=== PATIENT | male | born 1950 | race Caucasian/White ===

== ENCOUNTER → 2019-10-29 10:59 | Outpatient (REF) | payer MEDICARE, SELFPAY | LOC: ANHLAB 10:59 | PROVIDERS: PCP Internal Medicine; Visit Provider Nurse Practitioner | DX: L57.0 Actinic keratosis (principal) | CPT/HCPCS: 88305 ==

== ENCOUNTER 2020-11-30 07:30 | Outpatient (RCR) | payer MEDICARE, SELFPAY ==
--- NOTE | 2020-11-03 14:06 | PTOPEVAL ---
Thank you for referring Annel Jenkins to [facility].? The patient is scheduled to be seen for therapy? 2 x/week for 4-6 weeks. Please review, sign, date and return this plan of care ALBINO. I agree with and certify that the following plan of care is medically necessary. Referring Physician Date Attending Provider: Giuseppe Casey MD Referring Provider: Giuseppe Casey MD Evaluation Information Problem Diagnosis kassandra knee OA Onset chronic Additional Evaluation Detail last bout of therapy 3 yrs ago to address knee pain. Subjective Information He recently received Query Text:As Reported By Patient/ injections in kassandra. knee with Family improve knee pain. He was recommended to have TKA 3 yrs ago, but his pain and symptoms improved with therapy. He requested returning to therapy to address knee pain. He does not wear a brace for his knees. He c/o weakness of his legs and sluggish of his legs . He has pain with twisting motion with golf. [employer]: knee ext machine single leg at 40#, hamstring curls at 40#, calf presses at 40#, leg press at 40#. He does not usually perform cardio, will do 10' on bike. Does not perform a walking program. He goes to the gym 1-3x/wk. He can walk up/down the steps at home without problems, but he uses the railing. He will preform steps for cardio x 6 reps Pain Assessment Pain Scale Used Numeric (1 - 10) Self Report Pain Assessment Left Knee(s) Reported Pain Level 0 Pain Description Aching Pain Frequency Chronic Lowest Pain Intensity 0 Greatest Pain Intensity 2 Pain Aggravating Factors Exercise/Activity,Stair Climbing,Walking,Weight Bearing/Standing Pain Behaviors None Right Knee(s) Reported Pain Level 0 Pain Frequency Chronic Lowest Pain Intensity 0 Greatest Pain Intensity 2 Pain Aggravating Factors Exercise/Activity,Stair
--- NOTE | 2020-11-30 10:33 | PTOPEVAL ---
Thank you for referring Annel Jenkins to [facility].? Patient has attended 7 therapy visits from 11/03/20 to 11/30/20. He demonstrates improved pain, improve muscle strength, improved leg control with functional mobility. He demonstrates independent with his home program and fitness routine program. He has achieved his therapy goals at this time. Will plan to discharge skilled therapy services at this time. Please review and sign therapy discharge summary and return ALBINO. I agree with and certify that the following plan of care is medically necessary. Referring Physician Date Attending Provider: Giuseppe Casey MD Referring Provider: Giuseppe Casey MD Physical Therapy Discharge Note Diagnosis kassandra knee OA Onset chronic Subjective Information He does problem with knees for Query Text:As Reported By Patient/ daily activities. States his Family knees feel good as long as he stays with his fitness routine. He does the machines at the gym. He is not consistent with the stretches at home. He knows he has to stick with his fitness routine. Denies any problem with playing golf. He does fatigue towards the end of the game. Pain Assessment Pain Scale Used Numeric (1 - 10) Self Report Pain Assessment Left Knee(s) Reported Pain Level 0 Greatest Pain Intensity 2 Right Knee(s) Reported Pain Level 0 Greatest Pain Intensity 2 Lower Extremity Muscle Strength Testing Hip Strength Bilateral Hip Flexion Strength 5 Normal Hip Extension Strength 5 Normal Hip Abduction Strength 4- Good - Knee Strength Bilateral Knee Flexion Strength 5 Normal Knee Extension Strength 5 Normal Muscle Length Testing Muscle Length Testing Two-Joint Hip Flexor Shortened Muscles Short (R) Iliopsoas,Short (L) Iliopsoas,Short (R) Rectus Femoris,Short (L) Rectus Femoris,Short (R) Ilial Tib Band,Short (L) Ilial Tib Band Piriformis w/Hip Flexion >90 Degrees (R) Moderate Tightness,(L) Moderate Tightness Right Prone Hip Internal Rotator Length 35 (degrees) Left Prone Hip Internal Rotator Length ( 40 degrees) Right Straight Leg Raise Muscle Length ( 90 degrees) Left Straight Leg Raise Muscle Length ( 90 degrees) Left Hamstring Length -25 Query Text:(90 - 90 Position) Right Hamstring Length -25 Query Text:(90 - 90 Position) Special Tests-Lower Extremity Hip Special Tests Blue
== END 2020-11-30 14:49 | disposition home or self-care (01) ==
LOC: ANHPT 07:30
PROVIDERS: PCP Internal Medicine; Referring Provider Orthopaedic Surgery; Visit Provider Orthopaedic Surgery
DX: M17.0 Bilateral primary osteoarthritis of knee (principal)
CPT/HCPCS: 97110; 97140; 97162

== ENCOUNTER → 2021-05-04 08:16 | Outpatient (REF) | payer MEDICARE, SELFPAY | LOC: ANHLAB 08:16 | PROVIDERS: PCP Internal Medicine; Visit Provider Nurse Practitioner | DX: L98.9 Disorder of the skin and subcutaneous tissue, unspecified (principal) | CPT/HCPCS: 88305 ==

== ENCOUNTER → 2021-07-05 08:06 | Outpatient (REF) | payer MEDICARE, SELFPAY | LOC: ANHLAB 08:06 | PROVIDERS: PCP Internal Medicine; Visit Provider Nurse Practitioner | DX: C44.42 Squamous cell carcinoma of skin of scalp and neck (principal) | CPT/HCPCS: 88305; 88331 ==

== ENCOUNTER 2021-08-23 23:46 | Observation (INO) | payer MEDICARE, SELFPAY ==
--- NOTE | ~2021-08-23 | XR_ITS ---
EXAMINATION: XR chest 1V portable EXAM DATE: 08/24/2021 00:40 INDICATION: Cough, shaking chills, heavy breathing. TECHNIQUE: Portable AP frontal chest x-ray was obtained. There is no prior study for comparison. FINDINGS: The lungs are clear. There are no pleural effusions. Cardiac silhouette is prominent but magnified on this AP technique. There is no pneumothorax suspected. The bones and soft tissues are unremarkable. IMPRESSION: No acute cardiopulmonary findings. Reviewed, dictated and finalized at location A. UCT MARKETING COORDINATOR
[2021-08-23 23:51] VITALS: BP 147/92; PULSE 87; RESP 20; TEMP 36.7; O2SAT 97
[2021-08-24] VITALS (15 sets, daily range): BP systolic 91–140; BP diastolic 45–90; PULSE 69–98; RESP 16–20; TEMP 36.3–37.4; O2SAT 22–99; BMI 35.0
--- NOTE | 2021-08-24 | ECHO_ITS ---
Patient Info Name: Annel Jenkins Age: 70 years : 1950 Gender: Male Ht: 65 in Wt: 210 lbs BSA: 2.13 m2 HR: 75 bpm BP: 115 / 74 mmHg Heart Rhythm: Sinus Rhythm Exam Date: 08/24/2021 2:45 PM Exam Location: [facility] Patient Status: Outpatient Admit Date: 08/24/2021 Staff Ordering Physician: Yonny Jones MD Sheet Metal Lay Out Worker: Cristofer Nowak, ANTONIETA, RT Attending Provider: Joseph Leal MD Referring Physician: Robert ADORNO; Exam Type: CA echo doppler color flow Study Info Indications I45.89 - Other specified conduction disorders Complete two-dimensional, color flow and Doppler transthoracic echocardiogram is performed. Strain analysis performed. Summary 1. Complete two-dimensional, color flow and Doppler transthoracic echocardiogram is performed. 2. Strain analysis performed. 3. Left ventricular chamber dimension is normal. 4. Left ventricular systolic function is normal, estimated at 60-65%. 5. There is mildly increased left ventricular wall thickness. 6. The left ventricular diastolic function is normal. 7. Global longitudinal strain is abnormal at -15 %. 8. Right ventricular chamber dimension is mildly enlarged. 9. There is mild mitral valve regurgitation. 10. Mild pulmonary hypertension, estimated pulmonary arterial systolic pressure is 36 mmHg. 11. There is mild tricuspid valve regurgitation. 12. There is mild pulmonic regurgitation. 13. The aortic root size at the sinus of Valsalva is mildly dilated. Left Ventricle Left ventricular chamber dimension is normal. Left ventricular systolic function is normal, estimated at 60-65%. There is mildly increased left ventricular wall thickness. The left ventricular diastolic function is normal. Global longitudinal strain is abnormal at -15 %. Right Ventricle Right ventricular chamber dimension is mildly enlarged. Right ventricular systolic function is normal. Left Atria Left atrial chamber dimension is mildly enlarged. Right Atria Right atrial chamber dimension is normal. Atrial Septum Intact interatrial septum visualized by color flow imaging. Aortic Valve The aortic valve is trileaflet. There is mild aortic valve sclerosis. There is no aortic valve stenosis. There is trace aortic valve regurgitation. Pulmonic Valve The pulmonic valve is normal. There is no pulmonic valve stenosis. There is mild pulmonic regurgitation. Mitral Valve The mitral valve has normal leaflets. There is no mitral valve stenosis. There is mild mitral valve regurgitation. Tricuspid Valve Mild pulmonary hypertension, estimated pulmonary arterial systolic pressure is 36 mmHg. The tricuspid valve leaflets are normal. There is no significant tricuspid valve stenosis. There is mild tricuspid valve regurgitation. Pericardium/Pleural The pericardium appears normal. There is no pericardial effusion. Inferior Vena Cava Normal inferior vena cava with >50% collapse upon inspiration consistent with normal right atrial pressure, 5 mmHg. Aorta The aortic root size at the sinus of Valsalva is mildly dilated. Left Ventricular Outflow Tract Name Value Normal LVOT 2D LVOT Diameter 2.0 cm LVO
--- NOTE | 2021-08-24 00:01 | ECG_ITS ---
Measurements Intervals [place] Rate: 93 P: [place]: 0 QRS: 12 QRSD: 97 T: 5 QT: 358 QTc: 447 Interpretive Statements ACCELERATED JUNCTIONAL RHYTHM FREQUENT VENTRICULAR PREMATURE COMPLEXES INCOMPLETE RIGHT BUNDLE BRANCH BLOCK DELAYED PRECORDIAL R/S TRANSITION BORDERLINE T WAVE ABNORMALITY- INFERIOR LEADS BASELINE ARTIFACT- I, II, AVR, AVL, AVF, V4-V6 ABNORMAL ECG Electronically Signed On 08-24-2021 7:38:32 NITROGLYCERIN DISTRIBUTOR by Alvaro Davila D.O.
--- NOTE | 2021-08-24 00:03 | ED.GENADULT ---
HPI - General Adult General Chief complaint: Unspecified Stated complaint: shaking Time Seen by Provider: 08/23/21 23:52 Source: RN notes reviewed History of Present Illness HPI narrative: Patient presents emergency department from home for shaking. Patient states proximally 1 hour prior to arrival he was having generalized shaking of his arms and legs states that during this episode he felt cold but was awake. He states episode lasted for approximately 45 minutes there is no loss of bowel or bladder he states his symptoms have since resolved he denies any fevers or chills chest pain shortness of breath abdominal pain nausea vomiting denies any recent illness Related Data Home Medications Medication Instructions Recorded Confirmed rosuvastatin 10 mg tablet 10 mg PO DAILY 10/29/19 08/24/21 cholecalciferol (vitamin D3) 50 50 mcg PO DAILY 01/28/20 08/24/21 mcg (2,000 unit) capsule glucosamine-chondroitin 250 mg-200 2 tablet PO DAILY tablet 01/28/20 08/24/21 mg tablet aspirin 81 mg tablet,delayed 81 mg PO DAILY 10/27/20 08/24/21 release Allergies Allergy/AdvReac Type Severity Reaction Status Date / Time No Known Allergies Allergy Verified 08/24/21 04:52 Review of Systems Review of Systems: Gen.: Denies fevers or chills Eyes: Denies eye pain or visual change ENT: Denies congestion Respiratory: Denies shortness of breath or cough CV: Denies chest pain or palpitations GI: Denies abdominal pain nausea, emesis or diarrhea denies burning, urgency, frequency or hematuria Musculoskeletal: Denies back pain or muscle pain Neuro: Denies numbness, tingling, weakness reports shaking of the arms and legs Skin: Denies rash Except as documented, all other systems reviewed and negative [facility] Past Medical History Medical History Bilateral knee pain Degenerative joint disease of knee High cholesterol Left knee DJD Right knee DJD Right knee DJD Family History Family History Grandparent Carcinoma of colon Mother Family history of diabetes mellitus in first degree relative Other Diabetes mellitus Family history of cardiovascular disease Family history of heart disease in male family member before age 55 Heart disease Social History Social History Smoking status: Never smoker Alcohol intake: never Substance use: current Substance use type: does not use Gender identity (if verbalized by the patient): Male Spiritual care concerns: No Exam Narrative: APPEARANCE: No acute distress, nontoxic, resting in bed EYES: EOMI HEENT: Normocephalic, atraumatic, TMs clear bilaterally nares patent or mucosa moist erythema exudate posterior pharynx RESPIRATORY: No respiratory distress Clear to auscultation bilaterally with no rhonchi wheezing or rales. CARDIOVASCULAR: Regular rate and rhythm without murmurs rubs or gallops. ABDOMINAL: Soft, nontender, nondistended, no rebound or guarding MUSCULOSKELETAl: Moves all extremities. No clubbing, cyanosis or edema. NEURO: Awake and alert x 3. Following commands, speech normal, no focal deficits SKIN:: Warm, dry. No rashes lesions or abrasions PSYCHIATRIC: Normal affect/mood, Course Course Emergency Course: Discussed with Dr. Escobar presentation work-up agrees with admission at this time patient is consults to cardiology and urology Discussed Dr. Sarkar presentation work-up agrees with consult at this time Discussed with Dr. Mitchell presentation work-up agrees with consult Discussed with patient and family results of workup and diagnosis. Discussed need for admission. Patient and family understand and agree to current treatment plan Vital Signs Vital signs: Vital Signs Temperature 98.1 F 08/23/21 23:51 Pulse Rate 87 08/23/21 23:51 Respiratory Rate 20 08/23/21 23:51 Blood Pressure 147/92
[2021-08-24 00:38] LABS: Basophils Percent Auto 0.2 % (0.2-1.2); Eosinophils Absolute Auto 0.1 K/mm3 (0-0.3); Hematocrit 47.3 % (42.0-52.0); Immature Granulocyte Absolute 0.03 K/mm3 (0.00-0.031); Immature Granulocyte Percent A 0.2 % (0-0.5); Lymphocytes Absolute Auto 1.96 K/mm3 (0.9-3.2); Lymphocytes Percent Auto 15.7 % (18.3-44.2); Mean Corpuscular HGB Conc 33.8 g/dl (32-36); Mean Corpuscular Hemoglobin 29.8 pg (26-34); Mean Corpuscular Volume 88.1 fl (80-100); Mean Platelet Volume 10.1 fl (7.4-10.4); Monocytes Absolute Auto 0.2 K/mm3 (0.1-0.6); Monocytes Percent Auto 1.4 % (2.6-8.5); Neutrophils Absolute Auto 10.1 K/mm3 (1.3-6.7); Neutrophils Percent Auto 81.5 % (45.5-73.1); Platelet Count Result 148 k/mm3 (150-375); Red Blood Count 5.37 M/mm3 (4.6-6.20); Red Cell Distribution Width 14.3 % (11.5-14.5); White Blood Count 12.5 K/mm3 (4.5-10.0)
[2021-08-24 00:39] LABS: Add Urine Microscopic? YES; Appearance Urine Cloudy (Clear); Bacteria Urine Trace /hpf; Bilirubin Urine Negative (Negative); Blood Urine 1+ (Negative); Color Urine Yellow (Yellow); Glucose Urine UA Negative (Negative); Ketones Urine Negative (Negative); Leukocyte Esterase Ur 3+ LEU/UL (Negative); Mucus Urine Rare /lpf; Nitrate Urine Negative (Negative); Protein Urine 1+ mg/dL (Negative); RBC Urine 21-50 /hpf (0-2); Specific Grav Ur 1.015 (1.001-1.035); Urobilinogen Urine Negative mg/dL (<2.0); WBC Clumps Urine Present /HPF; WBC Urine >75 /hpf
[2021-08-24 00:49] LABS: Alanine Aminotransferase 22 U/L (4-50); Albumin Level 4.6 g/dL (3.5-5.1); Alkaline Phosphatase 66 U/L (38-126); Anion Gap 8 mmol/L (8-16); Aspartate Amino Transferase 28 U/L (17-59); Bilirubin,Total 0.4 mg/dL (0.2-1.3); Blood Urea Nitrogen 24 mg/dL (9-20); Calcium 9.4 mg/dL (8.4-10.2); Carbon Dioxide 20 mmol/L (22-30); Chloride 107 mmol/L (98-107); Estimated CRCL calculation 63 ml/min; Estimated Glomerular Filt Rate > 60; Glucose 110 mg/dL (65-110); Sodium 135 mmol/L (137-145)
[2021-08-24] MEDS: ACETAMINOPHEN 500 MG TABLET 1000 MG PO (01:00)
[2021-08-24 01:43] LABS: Lactic Acid Reflex 2.4 mmol/L (0.7-2.1)
--- NOTE | 2021-08-24 01:45 | ECG_ITS ---
Measurements Intervals [place] Rate: 94 P: [place]: 0 QRS: -2 QRSD: 100 T: 12 QT: 363 QTc: 455 Interpretive Statements ACCELERATED JUNCTIONAL RHYTHM INCOMPLETE RIGHT BUNDLE BRANCH BLOCK DELAYED PRECORDIAL R/S TRANSITION MINIMAL Q WAVES- INFERIOR LEADS BORDERLINE T WAVE ABNORMALITY- INFERIOR LEADS ABNORMAL ECG Electronically Signed On 08-24-2021 7:41:49 TAPE FOLDING MACHINE OPERATOR by Alvaro Davila D.O.
[2021-08-24 02:34] LABS: Troponin I < 0.012 ng/mL (0.000-0.034)
[2021-08-24] MEDS: SODIUM CHLORIDE 0.9% IV 1,000 ML 999 ML IV CONT ×2 (02:38→03:47)
--- NOTE | 2021-08-24 04:17 | ADMGEN ---
This patient, Annel Jenkins, was admitted to Medical Room 252-01. Patient/family oriented to hospital policies and general routines including ID bracelet, bed and alarms, visiting hours, pain management, procedures, bathroom and other care routines, personal items, smoking policy, room service/diet, and visiting hours. Information on how to activate the Rapid Response Team has been discussed. Patient/Family are encouraged to report perceived risks to care and to ask questions if they do not understand what they are told or what they should do.
[2021-08-24 04:28] LABS: Reflex Lactic Acid Yes or No Add Lactic
[2021-08-24] MEDS: SODIUM CHLORIDE 0.9% IV 1,000 ML 100 ML IV CONT ×2 (04:45→14:21)
[2021-08-24 05:48] LABS: Lactic Acid 2.1 mmol/L (0.7-2.1)
[2021-08-24 06:01] LABS: Troponin I < 0.012 ng/mL (0.000-0.034)
--- NOTE | 2021-08-24 06:17 | WPDURCON ---
Urology Consult Note HPI Date Seen: 08/24/21 Requesting Physician: Joseph Leal MD Primary Care Provider: Marcell Valadez, MD Consult Narrative Narrative: Annel Jenkins is a 70 year old male, well known to me with longstanding prostatism. Approximately 2 ago we started him back on combination therapy consisting tamsulosin and finasteride. He did not notice most response and contact me last week with some new onset mild irritable voiding symptoms. Subsequently took himself both BPH medications without significant regression until last night. That time, he presented with fevers, shaking chills and pyuria - consistent with acute prostatitis. He reports intermittent scant hematuria and slightly diminished force of stream. Review of Systems Constitutional: Constitutional: Reports chills, Reports fever(s) and Reports lethargy Cardiovascular: Cardiovascular: Denies chest pain, Denies lightheadedness, Denies palpitations and Denies dyspnea Respiratory: Respiratory: Denies dyspnea Gastrointestinal: Gastrointestinal: Denies diarrhea, Denies nausea and Denies vomiting Genitourinary: Genitourinary: Denies hematuria and Reports dysuria Endocrine: Endocrine: Denies palpitations PMFSH Past Medical History Medical History Bilateral knee pain Degenerative joint disease of knee High cholesterol Left knee DJD Right knee DJD Right knee DJD Family History Family History Grandparent Carcinoma of colon Mother Family history of diabetes mellitus in first degree relative Other Diabetes mellitus Family history of cardiovascular disease Family history of heart disease in male family member before age 55 Heart disease Social History Social History Smoking status: Never smoker Alcohol intake: never Substance use: current Substance use type: does not use Gender identity (if verbalized by the patient): Male Spiritual care concerns: No Meds Home Medications and Allergies Home Medications Medication Instructions Recorded Confirmed Type rosuvastatin 10 mg tablet 10 mg PO DAILY 10/29/19 08/24/21 History cholecalciferol (vitamin D3) 50 50 mcg PO DAILY 01/28/20 08/24/21 History mcg (2,000 unit) capsule glucosamine-chondroitin 250 mg-200 2 tablet PO DAILY tablet 01/28/20 08/24/21 History mg tablet aspirin 81 mg tablet,delayed 81 mg PO DAILY 10/27/20 08/24/21 History release Allergies Allergy/AdvReac Type Severity Reaction Status Date / Time No Known Allergies Allergy Verified 08/24/21 04:52 Vital Signs Vital Signs - 24 hr 08/23/21 23:51 08/24/21 00:34 08/24/21 00:37 Temperature 98.1 F Pulse Rate 87 88 Respiratory Rate 20 20 Blood Pressure 147/92 H Pulse Oximetry 97 97 08/24/21 00:50 08/24/21 02:33 08/24/21 03:30 Temperature 99.4 F Pulse Rate 98 87 69 Respiratory Rate 20 18 16 Blood Pressure 140/90 96/54 L 91/45 L Pulse Oximetry 98 22 L 97 08/24/21 03:49 08/24/21 04:00 08/24/21 04:14 Temperature Pulse Rate 72 70 72 Respiratory Rate 18 18 Blood Pressure 112/69 Pulse Oximetry 95 95 Results Labs CBC & Chem 7: 08/24/21 00:33 08/24/21 00:33 Labs: Short CBC 08/24/21 Range/Units 00:33 WBC 12.5 H (4.5-10.0) K/mm3 Hgb 16.0 (14.0-18.0) g/dL Hct 47.3 (42.0-52.0) % Plt Count 148 L (150-375) k/mm3 [place] 08/24/21 00:33 Sodium 135 L Potassium 4.0 Chloride 107 Carbon Dioxide 20 L BUN 24 H Creatinine 1.00 Glucose 110 Calcium 9.4 Cardiac Enzymes 08/24/21 08/24/21 Range/Units 00:33 05:07 Troponin I < 0.012 < 0.012 (0.000-0.034) ng/mL Liver Function 08/24/21 Range/Units 00:33 Total Bilirubin 0.4 (0.2-1.3) mg/dL AST 28 (17-59) U/L ALT 22 (4-50) U/L Alkaline Phosphatase 66 (38-126) U/L
[2021-08-24 08:57] LABS: Troponin I < 0.012 ng/mL (0.000-0.034)
[2021-08-24] MEDS: TAMSULOSIN HCL 0.4 MG CAPSULE PO (09:24)
--- NOTE | 2021-08-24 10:32 | PM.IMHP ---
H&P: HPI History of Present Illness Date/Time: 08/24/21 10:32 Chief Complaint: shaking, chills Narrative: Annel Jenkins is a 70 year man with a past medical history significant for BPH who presented to the ED with complaints of shaking early this morning. He tells me he woke up with these symptoms and they lasted for about 45 minutes and decided to be evaluated in the ED. He reports associated symptoms including difficulty with urination and hematuria. He has been followed by Dr. Sarkar in the past. He denied any fever, CP, palpitations, SOB, N/V. In the ED WBC 12.5; Lactic acid was elevated at 2.4; UA consistent with UTI. Na+ 135; BUN 24; PLT 148. CXR showed no acute changes. ECG showed--> ACCELERATED JUNCTIONAL RHYTHM; INCOMPLETE RIGHT BUNDLE BRANCH BLOCK. IVF and IV antibiotics were initiated in the ED; urology and cardiology were consulted. The patient has been admitted to observation status for further evaluation and treatment. Review of Systems Review of Systems: All systems reviewed & are unremarkable except as noted in HPI and below PMFSH Past Medical History Medical History Bilateral knee pain Degenerative joint disease of knee High cholesterol Left knee DJD Right knee DJD Right knee DJD Family History Family History Grandparent Carcinoma of colon Mother Family history of diabetes mellitus in first degree relative Other Diabetes mellitus Family history of cardiovascular disease Family history of heart disease in male family member before age 55 Heart disease Social History Social History Smoking status: Never smoker Alcohol intake: never Substance use: current Substance use type: does not use Gender identity (if verbalized by the patient): Male Spiritual care concerns: No Meds Home Medications and Allergies Home Medications Medication Instructions Recorded Confirmed Type rosuvastatin 10 mg tablet 10 mg PO DAILY 10/29/19 08/24/21 History cholecalciferol (vitamin D3) 50 50 mcg PO DAILY 01/28/20 08/24/21 History mcg (2,000 unit) capsule glucosamine-chondroitin 250 mg-200 2 tablet PO DAILY tablet 01/28/20 08/24/21 History mg tablet aspirin 81 mg tablet,delayed 81 mg PO DAILY 10/27/20 08/24/21 History release Allergies Allergy/AdvReac Type Severity Reaction Status Date / Time No Known Allergies Allergy Verified 08/24/21 04:52 Vital Signs Vital Signs - 24 hr 08/23/21 23:51 08/24/21 00:34 08/24/21 00:37 Temperature 36.7 C Pulse Rate 87 88 Respiratory Rate 20 20 Blood Pressure 147/92 H Pulse Oximetry 97 97 08/24/21 00:50 08/24/21 02:33 08/24/21 03:30 Temperature 37.4 C Pulse Rate 98 87 69 Respiratory Rate 20 18 16 Blood Pressure 140/90 96/54 L 91/45 L Pulse Oximetry 98 22 L 97 08/24/21 03:49 08/24/21 04:00 08/24/21 04:14 Temperature Pulse Rate 72 70 72 Respiratory Rate 18 18 Blood Pressure 112/69 Pulse Oximetry 95 95 08/24/21 06:00 08/24/21 08:00 Temperature 36.3 C L Pulse Rate 72 76 Respiratory Rate 20 Blood Pressure 115/74 Pulse Oximetry 98 Exam Const: General: no acute distress, alert and awake Orientation/consciousness: patient oriented x3 HENMT: Head: normocephalic and atraumatic Ears: hearing grossly normal bilaterally and external ears normal Face and sinus: face symmetric Mouth: Yes Normal oral and palatal mucosa present Eyes: EOM: EOMs intact bilaterally Neck: Neck: full ROM, trachea midline and no JVD Chest: Chest palpation & inspection: normal inspection of the chest Resp: Effort & Inspection: normal respiratory effort Auscultation: clear to auscultation bilaterally Cardio: Jugular venous distension: no JVD Heart sounds: S1 normal heart sound present and S2 normal heart sound present GI: GI Palp: Yes
[2021-08-24 11:26] LABS: Anion Gap 7 mmol/L (8-16); Blood Urea Nitrogen 22 mg/dL (9-20); Calcium 8.9 mg/dL (8.4-10.2); Carbon Dioxide 20 mmol/L (22-30); Chloride 107 mmol/L (98-107); Estimated CRCL calculation 63 ml/min; Estimated Glomerular Filt Rate > 60; Glucose 104 mg/dL (65-110); Potassium 3.7 mmol/L (3.4-5.0); Sodium 134 mmol/L (137-145)
[2021-08-24 11:33] LABS: Basophils Percent Auto 0.2 % (0.2-1.2); Eosinophils Percent Auto 0.1 % (0-4.4); Hemoglobin 14.4 g/dL (14.0-18.0); Immature Granulocyte Percent A 0.5 % (0-0.5); Lymphocytes Absolute Auto 0.72 K/mm3 (0.9-3.2); Lymphocytes Percent Auto 3.8 % (18.3-44.2); Mean Corpuscular HGB Conc 32.7 g/dl (32-36); Mean Corpuscular Hemoglobin 29.5 pg (26-34); Mean Corpuscular Volume 90.2 fl (80-100); Mean Platelet Volume 11.3 fl (7.4-10.4); Monocytes Absolute Auto 0.9 K/mm3 (0.1-0.6); Monocytes Percent Auto 4.7 % (2.6-8.5); Neutrophils Absolute Auto 17.4 K/mm3 (1.3-6.7); Neutrophils Percent Auto 90.7 % (45.5-73.1); Platelet Count Result 136 k/mm3 (150-375); Red Blood Count 4.88 M/mm3 (4.6-6.20); Red Cell Distribution Width 14.6 % (11.5-14.5); White Blood Count 19.2 K/mm3 (4.5-10.0)
--- NOTE | 2021-08-24 13:06 | PM.CNCAR ---
Assessment and Plan Assessment and plan (1) Abnormal ECG: Code(s): R94.31 - Abnormal electrocardiogram [ECG] [EKG] Status: Acute Assessment and Plan: EKG shows an accelerated junctional rhythm. He is completely asymptomatic. Will check a 2D echocardiogram Doppler as well as a TSH and free T4 level. Will also add a magnesium level. Again though he is quite active any feels well otherwise. He came into hospital because of fevers, chills related to UTI and prostatitis. Will repeat EKG tomorrow. (2) Acute UTI: Code(s): N39.0 - Urinary tract infection, site not specified Status: Acute Assessment and Plan: On antibiotics (3) Prostatitis: Code(s): N41.9 - Inflammatory disease of prostate, unspecified Status: Acute Assessment and Plan: Continue antibiotic (4) Hyperlipidemia: Code(s): E78.5 - Hyperlipidemia, unspecified Status: Acute Assessment and Plan: Continue statin (5) Sleep apnea: Code(s): G47.30 - Sleep apnea, unspecified Status: Acute Assessment and Plan: Certainly sounds as if he has sleep disordered breathing. Will check an apnea link before discharge History of Present Illness History of Present Illness Consult date/time: 08/24/21 13:06 Requesting physician: Alessandro Lobo, Consult reason: Other (Supraventricular rhythm) Reason For Visit: Sepsis,UTI,supraventricular rhythm Narrative: Reason for consultation: Supraventricular rhythm Date of service: 08/24/2021 Requesting provider: Dr. Lobo History patient is a 70-year-old male who has a history of BPH, high cholesterol. He came to the hospital because of chills, feeling cold and trembling. He has had some burning upon urination for quite some time. From a cardiac perspective he had been feeling fine recently and has denied any chest pain, shortness of breath, syncope, presyncope, paroxysmal nocturnal dyspnea, orthopnea, edema or palpitations. In the emergency department an EKG was performed showing an accelerated junctional rhythm. Review of Systems Review of Systems: All systems reviewed & are unremarkable except as noted in HPI and below Constitutional: Constitutional: Reports chills and Denies weakness Eyes: Eyes: Denies blurry vision ENT: Denies Normal hearing present Cardiovascular: Cardiovascular: Denies chest pain Respiratory: Respiratory: Denies dyspnea Gastrointestinal: Gastrointestinal: Denies abdominal pain Genitourinary: Genitourinary: Reports dysuria Musculoskeletal: Musculoskeletal: Denies neck pain Integumentary/Breasts: Skin/Breast: Denies dry skin Neurologic: Denies headache(s) Psychiatric: Psychiatric: Denies anxiety Endocrine: Endocrine: Denies fatigue Hematologic/Lymphatic: Hematologic/Lymphatic: Denies easy bleeding Allergic/Immunologic: Allergic/Immunologic: Denies GI upset with certain foods PMFSH Past Medical History Medical History Bilateral knee pain Degenerative joint disease of knee High cholesterol Left knee DJD Right knee DJD Right knee DJD Family History Family History Grandparent Carcinoma of colon Mother Family history of diabetes mellitus in first degree relative Other Diabetes mellitus Family history of cardiovascular disease Family history of heart disease in male family member before age 55 Heart disease Social History Social History Smoking status: Never smoker Alcohol intake: never Substance use: current Substance use type: does not use Gender identity (if verbalized by the patient): Male Spiritual care concerns: No Meds Home Medications and Allergies Home Medications Medication Instructions Recorded Confirmed Type rosuvastatin 10 mg tablet 10 mg PO DAILY 10/29/19 08/24/21 History
[2021-08-24] MEDS: ACETAMINOPHEN 325 MG TABLET 650 MG PO (20:34)
[2021-08-25] VITALS (7 sets, daily range): BP systolic 102–129; BP diastolic 62–90; PULSE 59–83; RESP 18–21; TEMP 36.8–36.9; O2SAT 96–100
[2021-08-25 00:06] LABS: Magnesium 1.9 mg/dL (1.6-2.3)
[2021-08-25] MEDS: SODIUM CHLORIDE 0.9% IV 1,000 ML 100 ML IV CONT (02:53)
[2021-08-25 05:57] LABS: Basophils Percent Auto 0.3 % (0.2-1.2); Eosinophils Percent Auto 0.1 % (0-4.4); Hematocrit 44.2 % (42.0-52.0); Hemoglobin 14.8 g/dL (14.0-18.0); Immature Granulocyte Absolute 0.04 K/mm3 (0.00-0.031); Immature Granulocyte Percent A 0.4 % (0-0.5); Lymphocytes Percent Auto 8.1 % (18.3-44.2); Mean Corpuscular HGB Conc 33.5 g/dl (32-36); Mean Corpuscular Hemoglobin 29.8 pg (26-34); Mean Corpuscular Volume 88.9 fl (80-100); Mean Platelet Volume 10.5 fl (7.4-10.4); Monocytes Absolute Auto 0.5 K/mm3 (0.1-0.6); Monocytes Percent Auto 4.7 % (2.6-8.5); Neutrophils Absolute Auto 9.6 K/mm3 (1.3-6.7); Neutrophils Percent Auto 86.4 % (45.5-73.1); Platelet Count Result 129 k/mm3 (150-375); Red Blood Count 4.97 M/mm3 (4.6-6.20); Red Cell Distribution Width 14.8 % (11.5-14.5); White Blood Count 11.1 K/mm3 (4.5-10.0)
[2021-08-25 06:10] LABS: Anion Gap 8 mmol/L (8-16); Blood Urea Nitrogen 20 mg/dL (9-20); Calcium 8.6 mg/dL (8.4-10.2); Carbon Dioxide 22 mmol/L (22-30); Chloride 106 mmol/L (98-107); Estimated CRCL calculation 63 ml/min; Estimated Glomerular Filt Rate > 60; Glucose 96 mg/dL (65-110); Potassium 4.1 mmol/L (3.4-5.0); Sodium 136 mmol/L (137-145)
--- NOTE | 2021-08-25 07:00 | WPDUROPN2 ---
Progress Note: A&P Assessment and Plan (1) Acute prostatitis: Code(s): N41.0 - Acute prostatitis Status: Acute Assessment and Plan: Afebrile and improving leukocytosis or encouraging Continue ceftriaxone pending cultures Subjective Subjective Date/Time Seen: 08/25/21 07:00 Fatigued, urinary frequency/dysuria but, otherwise, feeling better. Review of Systems Cardiovascular: Cardiovascular: Denies chest pain, Denies lightheadedness, Denies palpitations and Denies dyspnea Respiratory: Respiratory: Denies dyspnea Gastrointestinal: Gastrointestinal: Denies diarrhea, Denies nausea and Denies vomiting Genitourinary: Genitourinary: Denies hematuria and Denies dysuria Endocrine: Endocrine: Denies palpitations Exam Const: General: no acute distress Resp: Effort & Inspection: normal respiratory effort GI: Inspection: non-distended GI Palp: No abdominal tenderness and No Guarding due to palpation present (GI) Auscultation: normal bowel sounds Objective Data Vital Signs Vital Signs: Vital Signs - 24 hr 08/24/21 08:00 08/24/21 12:00 08/24/21 14:00 Temperature 98.7 F Pulse Rate 76 73 75 Respiratory Rate 18 Blood Pressure 103/61 Pulse Oximetry 97 08/24/21 16:00 08/24/21 20:00 08/24/21 22:00 Temperature 98.1 F Pulse Rate 78 76 80 Respiratory Rate 20 Blood Pressure 111/60 Pulse Oximetry 99 08/25/21 00:00 08/25/21 04:00 Temperature Pulse Rate 59 L 72 Respiratory Rate Blood Pressure Pulse Oximetry Intake/Output Intake/Output: Intake & Output 08/22/21 08/23/21 08/24/21 08/25/21 23:59 23:59 23:59 23:59 Intake Total 4135 1000 Output Total 1650 Balance 2485 1000 Meds/Results Medications: Active Medications Generic Name Dose Route Start Last Admin Trade Name Freq PRN Reason Stop Dose Admin Acetaminophen 650 mg 08/24/21 10:57 08/24/21 20:34 Acetaminophen 325 Mg Tablet PO 650 mg Q4H PRN Administration Mild Pain (1-3) or Fever Hydrocodone Bitart/Acetaminophen 1 tab 08/24/21 10:57 Hydrocodone/Acetaminophen (*Crx) 5-325 Mg Tablet PO Q4H PRN Moderate Pain (4-6) Enoxaparin Sodium 40 mg 08/25/21 09:00 Enoxaparin 40 Mg/0.4 Ml Syringe SUB-Q DAILY [facility] Ceftriaxone Sodium/Dextrose 1 gm in 50 mls @ 100 mls/hr 08/25/21 03:00 08/25/21 02:53 Rocephin 1 Gm/D5w 50 Ml IVPB 100 mls/hr Q24H RAQUEL Administration Sodium Chloride 1,000 mls @ 100 mls/hr 08/24/21 02:15 08/25/21 02:53 Normal Saline Iv IV CONT 100 mls/hr .Q10H RAQUEL Administration Ondansetron HCl 4 mg 08/24/21 10:57 Ondansetron Inj 4 Mg/2 Ml Vial IV PUSH Q6H PRN Nausea And Vomiting Rosuvastatin Calcium 10 mg 08/25/21 09:00 Rosuvastatin 10 Mg Tablet PO DAILY [facility] Tamsulosin HCl 0.4 mg 08/24/21 09:00 08/24/21 09:24 Tamsulosin Hcl 0.4 Mg Capsule PO 0.4 mg QAM [facility] Administration Vitamin D 2,000 units 08/25/21 09:00 Cholecalciferol 1,000 Units Tablet PO DAILY [facility] Radiology Results: ITS Impressions Chest X-Ray 08/24/21 07:37 IMPRESSION: No acute cardiopulmonary findings. Labs Labs: Laboratory Results - last 24 hr 08/24/21 08/24/21 08/24/21 05:07 08:11 08:13 WBC 19.2 H RBC 4.88 Hgb 14.4 Hct 44.0 MCV 90.2 MCH 29.5 MCHC 32.7 RDW 14.6 H Plt Count 136 L MPV 11.3 H Immature Gran % (Auto) 0.5 Neut % (Auto) 90.7 H Lymph % (Auto) 3.8 L [place] % (Auto) 4.7 Eos % (Auto) 0.1 Baso % (Auto) 0.2 Lymph # (Auto) 0.72 L [place] # (Auto) 0.9 H Eos # (Auto) 0.0 Baso # (Auto) 0.0 Abs Immat Gran (auto) 0.10 H Absolute Neuts (auto) 17.4 H Absolute Nucleated RBC 0.0 Nucleated RBC % 0.0 Sodium Potassium Chloride Carbon Dioxide Anion Gap BUN Creatinine Estim Creat Clear Calc Estimated GFR Glucose Calcium Magnesium 1.9 Troponin I < 0.012 TSH 1.760 Thy
[2021-08-25 07:21] LABS: T4 Thyroxine 8.24 ug/dL (5.53-11.0)
--- NOTE | 2021-08-25 08:15 | ECG_ITS ---
Measurements Intervals [place] Rate: 77 P: NM: 0 QRS: -12 QRSD: 99 T: 36 QT: 407 QTc: 462 Interpretive Statements ACCELERATED JUNCTIONAL RHYTHM LOW QRS VOLTAGE IN PRECORDIAL LEADS INCOMPLETE RIGHT BUNDLE BRANCH BLOCK DELAYED PRECORDIAL R/S TRANSITION MINIMAL Q WAVES- INFERIOR LEADS BORDERLINE T WAVE ABNORMALITY- ANT/INF LEADS BASELINE WANDER- AVF, V2-V3 ABNORMAL ECG Electronically Signed On 08-25-2021 10:02:55 [employer] by Alvaro Davila D.O.
[2021-08-25] MEDS: CHOLECALCIFEROL 1,000 UNITS TABLET 2000 UNITS PO (08:30)
[2021-08-25] MEDS: TAMSULOSIN HCL 0.4 MG CAPSULE PO (08:30)
[2021-08-25] MEDS: ROSUVASTATIN 10 MG TABLET PO (08:31)
[2021-08-25] MEDS: ENOXAPARIN 40 MG/0.4 ML SYRINGE SUB-Q (08:31)
--- NOTE | 2021-08-25 11:27 | PM.PNCARD ---
Progress Note: A&P Assessment and Plan (1) Abnormal ECG: Code(s): R94.31 - Abnormal electrocardiogram [ECG] [EKG] Status: Acute Assessment and Plan: in sinus rhythm at this point. He is going in and out of accelerated junctional rhythm versus sinus rhythm but is completely asymptomatic. No further inpatient workup needed. Echocardiogram as above revealing normal LV size and function (2) Acute UTI: Code(s): N39.0 - Urinary tract infection, site not specified Status: Acute Assessment and Plan: On antibiotics (3) Prostatitis: Code(s): N41.9 - Inflammatory disease of prostate, unspecified Status: Acute Assessment and Plan: Continue antibiotic (4) Hyperlipidemia: Code(s): E78.5 - Hyperlipidemia, unspecified Status: Acute Assessment and Plan: Continue statin (5) Sleep apnea: Code(s): G47.30 - Sleep apnea, unspecified Status: Acute Assessment and Plan: Apnea link is abnormal with a least mild sleep apnea. I did notify Dr. Valadez who will follow this up as an outpatient. Given his arrhythmia, important to treat the sleep apnea Subjective Date/time seen: 08/25/21 11:27 Interval history: 70-year-old admitted with UTI Date of service 08/25/2021: He feels good. No chest pain, shortness of breath. No dizziness. Review of Systems Review of Systems: All systems reviewed & are unremarkable except as noted in HPI and below Constitutional: Constitutional: Reports chills, Denies fatigue, Denies headache(s) and Denies weakness Eyes: Eyes: Denies blurry vision ENT: Denies Normal hearing present, Denies headache(s) and Denies neck pain Cardiovascular: Cardiovascular: Denies chest pain and Denies dyspnea Respiratory: Respiratory: Denies dyspnea Gastrointestinal: Gastrointestinal: Denies abdominal pain Genitourinary: Genitourinary: Reports dysuria Musculoskeletal: Musculoskeletal: Denies neck pain Integumentary/Breasts: Skin/Breast: Denies dry skin Neurologic: Denies Normal hearing present, Denies headache(s) and Denies weakness Psychiatric: Psychiatric: Denies anxiety Endocrine: Endocrine: Denies fatigue Hematologic/Lymphatic: Hematologic/Lymphatic: Denies easy bleeding Allergic/Immunologic: Allergic/Immunologic: Denies GI upset with certain foods Exam Narrative: Alert and oriented. Appears to be in no acute distress. Appears stated age Const: General: comfortable and no acute distress HENMT: General nose exam: Normal nares present Eyes: Sclera: sclerae normal Neck: Neck: supple and no JVD Chest: Other: No reproducible chest wall pain to palpation Resp: Auscultation: clear to auscultation bilaterally Cardio: Rate: regular rate and not bradycardic Rhythm: regular rhythm Heart sounds: no murmurs GI: Auscultation: normal bowel sounds Skin: General skin exam: normal color Neuro: Cranial nerves: No Normal hearing present Cognition (Neuro): normal cognition Speech: normal speech Extrem: General: normal to inspection Psych: Mental Status: mental status grossly normal Objective Data Vital Signs Vital Signs: Vital Signs - 24 hr 08/24/21 12:00 08/24/21 14:00 08/24/21 16:00 Temperature 37.1 C Pulse Rate 73 75 78 Respiratory Rate 18 Blood Pressure 103/61 Pulse Oximetry 97 08/24/21 20:00 08/24/21 22:00 08/25/21 00:00 Temperature 36.7 C Pulse Rate 76 80 59 L Respiratory Rate 20 Blood Pressure 111/60 Pulse Oximetry 99 08/25/21 04:00 08/25/21 06:00 08/25/21 08:00 Temperature 36.9 C Pulse Rate 72 72 75 Respiratory Rate 18 Blood Pressure 117/62 Pulse Oximetry 96 Intake/Output Intake/Output: Intake & Output 08/22/21 08/23/21 08/24/21 08/25/21 23:59 23:59 23:59 23:59 Intake Total 4135 2230 Output Total 1650 900 Balance 2485 1330 Meds/Results Medications: Active Medications Generic Name Dose Route Start Last Admin Trade Name
--- NOTE | 2021-08-25 12:35 | PM.IMPN ---
Progress Note: A&P Assessment and Plan (1) Sepsis: Code(s): A41.9 - Sepsis, unspecified organism Status: Acute Assessment and Plan: POA, suspect 2/2 UTI Leukocytosis, elevated Lactic acid, hypotension Continue IV fluids Continue IV Rocephin BC x1 Gram positive cocci in chains, follow final results Follow UC (2) Acute UTI: Code(s): N39.0 - Urinary tract infection, site not specified Status: Acute Assessment and Plan: Continue with IV Rocephin Follow UC (3) Prostatitis: Code(s): N41.9 - Inflammatory disease of prostate, unspecified Status: Acute Assessment and Plan: Treatment as above (4) BPH (benign prostatic hyperplasia): Code(s): N40.0 - Benign prostatic hyperplasia without lower urinary tract symptoms Status: Acute Assessment and Plan: Urology following, recommendations appreciated Flomax resumed (5) Abnormal ECG: Code(s): R94.31 - Abnormal electrocardiogram [ECG] [EKG] Status: Acute Assessment and Plan: ECG noted above No hx of CAD Takes 81 mg ASA daily Trop neg x3 Denies any CP Cardiology consulted ECHO--> EF 60-65%, normal diastolic dysfunction Tele monitoring (6) Sleep apnea: Code(s): G47.30 - Sleep apnea, unspecified Status: Acute Assessment and Plan: Apnea link is abnormal with a least mild sleep apnea Cardiology notified Dr. Valadez who will follow this up as an outpatient Given his arrhythmia, important to treat the sleep apnea Additional Plan Code status: FULL DVT Ppx: Lovenox Subjective Date/time seen: 08/25/21 12:35 Interval history: Pt seen this a.m.; clinically the patient is improving; denies any urinary symptoms Review of Systems Review of Systems: All systems reviewed & are unremarkable except as noted in HPI and below Exam Const: General: no acute distress, alert and awake Orientation/consciousness: patient oriented x3 HENMT: Head: normocephalic and atraumatic Ears: hearing grossly normal bilaterally and external ears normal Face and sinus: face symmetric Mouth: Yes Normal oral and palatal mucosa present Eyes: EOM: EOMs intact bilaterally Neck: Neck: full ROM, trachea midline and no JVD Chest: Chest palpation & inspection: normal inspection of the chest Resp: Effort & Inspection: normal respiratory effort Auscultation: clear to auscultation bilaterally Cardio: Jugular venous distension: no JVD Heart sounds: S1 normal heart sound present and S2 normal heart sound present GI: Auscultation: normal bowel sounds : General: Yes no CVA tenderness Back/Spine/Pelvis: Back: no CVA tenderness Skin: General skin exam: normal color Rashes: no rashes Neuro: General: patient oriented x3 and no focal motor deficits Speech: normal speech Extrem: General: no clubbing, cyanosis or edema Psych: Appearance: grossly normal Affect: normal affect Judgement: Good judgement present (Psych) Objective Data Vital Signs Vital Signs: Vital Signs - 24 hr 08/24/21 14:00 08/24/21 16:00 08/24/21 20:00 Temperature 37.1 C Pulse Rate 75 78 76 Respiratory Rate 18 Blood Pressure 103/61 Pulse Oximetry 97 08/24/21 22:00 08/25/21 00:00 08/25/21 04:00 Temperature 36.7 C Pulse Rate 80 59 L 72 Respiratory Rate 20 Blood Pressure 111/60 Pulse Oximetry 99 08/25/21 06:00 08/25/21 08:00 Temperature 36.9 C Pulse Rate 72 75 Respiratory Rate 18 Blood Pressure 117/62 Pulse Oximetry 96 Intake/Output Intake/Output: Intake & Output 08/22/21 08/23/21 08/24/21 08/25/21 23:59 23:59 23:59 23:59 Intake Total 4135 2230 Output Total 1650 900 Balance 2485 1330 Meds/Results Medications: Active Medications Generic Name Dose Route Start Last Admin Trade Name Freq PRN Reason Stop Dose Admin Acetaminophen 650 mg 08/24/21 10:57 08/24/21 20:34 Acetaminophen 325 Mg Tablet PO 650 mg Q4H PRN Administration Mild Deanna
[2021-08-26 06:00] VITALS: BP 103/84; PULSE 80; RESP 18; TEMP 36.4; O2SAT 97
[2021-08-26 06:05] LABS: Hematocrit 43.2 % (42.0-52.0); Hemoglobin 14.5 g/dL (14.0-18.0); Immature Platelet Fraction Pct 3.6 % (0.9-11.2); Mean Corpuscular HGB Conc 33.6 g/dl (32-36); Mean Corpuscular Hemoglobin 28.9 pg (26-34); Mean Corpuscular Volume 86.2 fl (80-100); Mean Platelet Volume 10.2 fl (7.4-10.4); Platelet Count Result 115 k/mm3 (150-375); Red Blood Count 5.01 M/mm3 (4.6-6.20); Red Cell Distribution Width 14.2 % (11.5-14.5)
[2021-08-26 06:26] LABS: Anion Gap 8 mmol/L (8-16); Blood Urea Nitrogen 17 mg/dL (9-20); Calcium 8.7 mg/dL (8.4-10.2); Carbon Dioxide 21 mmol/L (22-30); Chloride 107 mmol/L (98-107); Estimated CRCL calculation 69 ml/min; Estimated Glomerular Filt Rate > 60; Glucose 102 mg/dL (65-110); Potassium 3.9 mmol/L (3.4-5.0); Sodium 136 mmol/L (137-145)
[2021-08-26] MEDS: ROSUVASTATIN 10 MG TABLET PO (08:49)
[2021-08-26] MEDS: TAMSULOSIN HCL 0.4 MG CAPSULE PO (08:49)
[2021-08-26] MEDS: ENOXAPARIN 40 MG/0.4 ML SYRINGE SUB-Q (08:49)
[2021-08-26] MEDS: CHOLECALCIFEROL 1,000 UNITS TABLET 2000 UNITS PO (08:49)
--- NOTE | 2021-08-26 09:36 | PM.DS ---
DS: Admitting Diagnosis Discharge Date 08/26/21 Admitting Diagnosis Sepsis, prostatitis DS: Discharge Diagnosis Discharge Diagnosis (1) Acute prostatitis: Code(s): N41.0 - Acute prostatitis Status: Acute Assessment and Plan: -UA consistent with Enterococcus, he received Rocephin inpatient and will be discharged home with amoxicillin 500 mg t.i.d. for 2 weeks -blood cultures likely contaminant only 1 bottle with GPC -discussed with urologist Dr. Sarkar, follow-up in 1 month (2) Sepsis: Code(s): A41.9 - Sepsis, unspecified organism Status: Acute Assessment and Plan: Sepsis resolved with antibiotics DS: Summary Hospital Course Reason for hospitalization: Sepsis, urinary tract infection Hospital Course: Patient is a 70-year-old male past medical history of BPH presents to the ED with chills and shakes on 08/24/2021. He was found to Enterococcus prostatitis treated with Rocephin and will complete 2 weeks of amoxicillin 100 mg t.i.d. on discharge. Patient was seen and evaluated by Dr. Sarkar as Urology, and plan will be to continue antibiotics and follow-up in 1 month. Patient had incidental finding of Gram-positive cocci on blood cultures only 1 bottle. This is likely contaminant, discussed with urologist. At time of discharge patient's vitals stable, labs stable, patient stable for discharge. Patient understands and agrees with plan. Status at Discharge Cognitive/behavioral status at discharge: At baseline Functional status at discharge: independent ambulation Overall status at discharge: patient is back to baseline Time Spent with Patient Time attestation: Total time spent providing and/or coordinating discharge services:35 Time spent: Greater than 30 minutes Exam Narrative: - GENERAL: Pleasant male in no acute distress. Well-nourished. - EYES: EOMI. Anicteric. - HENT: Moist mucous membranes. No scleral icterus. - LUNGS: Clear to auscultation bilaterally, no wheezing, rhonchi, or rales. - CARDIOVASCULAR: Regular rate and rhythm. No murmur. No JVD. - ABDOMEN: Soft, non-tender and non-distended. No palpable masses. - EXTREMITIES: No edema. Peripheral pulses 2+. Non-tender. - NEUROLOGIC: No focal neurological deficits. CN II-XII grossly intact. - PSYCHIATRIC: Awake, Alert and oriented x 3. Appropriate mood and affect. - SKIN: No rashes or lesions. Warm. - LYMPH: No cervical lymphadenopathy. DS: Data Data Completed and Pending Labs on day of discharge: Labs from last 24 hours 08/26/21 08/26/21 08/24/21 05:34 05:34 01:24 WBC 7.0 RBC 5.01 Hgb 14.5 Hct 43.2 MCV 86.2 MCH 28.9 MCHC 33.6 RDW 14.2 Plt Count 115 L MPV 10.2 % Immature Plt Fraction 3.6 Sodium 136 L Potassium 3.9 Chloride 107 Carbon Dioxide 21 L Anion Gap 8 BUN 17 Creatinine 0.90 Estim Creat Clear Calc 69 Estimated GFR > 60 Glucose 102 Lactic Acid 2.4 H Calcium 8.7 Preliminary micro results at discharge 08/24/21 00:16 Urine Culture - Preliminary Urine Clean Catch Enterococcus species 08/24/21 01:23 Blood Culture - Preliminary Blood 08/24/21 01:23 Blood Culture - Preliminary Blood Discharge Plan Discharge Attending physician on discharge: Marla Dumont Consulting providers: David Sarkar ; Mustapha Mitchell Discharging Clinician: Marla Dumont Anticipated Discharge Date/Time: 08/26/21 09:34 Patient Disposition: Home, Self-Care Activity: as tolerated Diet: regular Discharge Instructions: Please take amoxicillin 500mg TID for 2 weeks and follow up with urologist in 1 month. Patient Instructions: Antibiotic Form, Aspirin (By mouth), Prostatitis (GEN) Patient Language: Estonian Stand Alone Forms: General Discharge Information Follow-up/Referrals: David Sarkar MD [Physician] - 4 Weeks Discharge Medications: New amoxicillin 500 mg capsule 500 mg PO Q8H 14 Days
== END 2021-08-26 11:00 | disposition home or self-care (01) ==
LOC: ANHED 08-24 00:37 → ANH2MED 08-24 04:52
PROVIDERS: Internal Medicine Cardiovascular Disease; Nurse Practitioner Adult Health; Admitting Provider Internal Medicine; Emergency Provider Emergency Medicine; PCP Internal Medicine; Visit Provider Student in an Organized Health Care Education/Training Program
DX: A41.9 Sepsis, unspecified organism (principal); N39.0 Urinary tract infection, site not specified; N41.0 Acute prostatitis; R94.31 Abnormal electrocardiogram [ECG] [EKG]; N40.0 Benign prostatic hyperplasia without lower urinary tract symptoms; E78.5 Hyperlipidemia, unspecified; G47.30 Sleep apnea, unspecified; Z79.82 Long term (current) use of aspirin
CPT/HCPCS: 36415; 71045; 80048; 80053; 81001; 83605; 83735; 84436; 84443; 84484; 85025; 85027; 85055; 87040; 87077; 87086; 87088; 87186; 93005; 93306; 94762; 96361; 96365; 96372; 96376; 99285; A9270; G0378; J0696; J1650; J7030

== ENCOUNTER 2022-08-15 08:00 | Outpatient (RCR) | payer MEDICARE, SELFPAY ==
--- NOTE | 2022-07-13 14:42 | PTOPEVAL1 ---
Assessment and note entered by Sharmin Gautam, PT, DPT Evaluation Information Assessment Status Evaluation Diagnosis kassandra knee pain Subjective Information Pt states he has been bone on bone for the last 5 years that he knows of. He states he has received cortisone injections in February and they have helped but do not seem to help as much this time. He states he has done therapy in the past and it has really helped his knees. He enjoys playing golf. His goal is to avoid a knee replacement, to improve his leg strength, and become more mobile. He states his knee gets more sore when it is cold or when he sits for too long. Reported Pain Level Pain Score 0: Self Report Assessment PT Clinical Summary Annel is a 71 y/o male who presents to therapy today for his initial evaluation with a diagnosis of kassandra knee pain. Today he demonstrates active ROM that is WFL, he demonstrates good knee strength as well. He does demonstrates decreased stability and functional strength with isolated LE exercise. He ambulates with a mild flexion and Trendelenburg pattern and lacks terminal knee extension during gait. Skilled physical therapy services are indicated to address functional deficits noted above, to improve function, to limit pain, and to promote unlimited functional mobility. Plan of Care Interventions Gait Training,Manual Therapy,Neuro Re-education, Patient/Caregiver Educati,Therapeutic Activities, Therapeutic Exercise PT Services Indicated Yes Treatment Frequency and 1x/wk for 6 wks Duration These treatments will address the objective and functional deficits as defined above. The patient will be advanced safely and appropriately in order for the patient to progress towards his/her prior level of function. Additional exercises will be introduced and as well as a comprehensive home exercise program upon discharge, if needed, ?to ensure carryover of functional gains achieved in the clinic. This treatment plan has been reviewed and agreement upon by the patient.
--- NOTE | 2022-08-15 09:48 | PTOPDC ---
Assessment and note entered by Sharmin Gautam, PT, DPT Evaluation Information Assessment Status Discharge Diagnosis kassandra knee pain Subjective Information Pt states overall his knees are doing great but he still has some bad days randomly. He states he thinks his pain is activity dependent. He does report he was able to go hunting and walk outside on uneven surfaces without an increase in pain. Pt reports 60% improvement in overall symptoms. Reported Pain Level Pain Score 3: Self Report Assessment PT Clinical Summary Annel presents to therapy today for his progress report following 6 visits of skilled therapy and participation in a home exercise program. Today he reports 60% improvement in his overall symptoms. He demonstrates improved lifting mechanics, improved body awareness, improved knee strength, and now equal knee active ROM kassandra. He demonstrates the ability to safely complete a floor <> stand transfers without UE support. He has met or progressed towards his therapy goals and no longer requires skilled therapy. He will be discharged at this time with instructions to continue his HEP and to follow up with his referring provider if needed. Plan of Care PT Services Indicated No Treatment Frequency and to be discharged Duration
== END 2022-08-15 11:35 | disposition home or self-care (01) ==
LOC: ANHGOSHPT 08:00
PROVIDERS: PCP Internal Medicine
DX: M17.0 Bilateral primary osteoarthritis of knee (principal)
CPT/HCPCS: 97110; 97112; 97140; 97161; 97530

== ENCOUNTER 2022-10-14 15:20 | Observation (INO) | payer MEDICARE, SELFPAY ==
--- NOTE | 2022-09-27 14:02 | PM.IMHP ---
H&P: HPI History of Present Illness Date/Time: 09/27/22 14:02 Chief Complaint: irritable urinary pattern Narrative: pleasant 70-year-old with long-standing prostatism dating back to at least April 2020. He reports both obstructive and irritable symptoms, specifically complaining of diminished force of stream, sense of incomplete emptying, postvoid dribbling as well as urinary frequency and urgency. 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 Cystoscopy in June 2021 showed a prostatic urethral length of 2.0-2.5 cm with a small median lobe. Transrectal ultrasound measured his prostate size at 36 g. He has had very marginal response to medical management. After discussion of therapeutic options including TURP and minimally invasive surgery such as UroLift or Rezum he has opted for the former. He is aware the risk including, not limited to, postoperative hematuria, persistent voiding symptoms. 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 Family History Family History Grandparent Carcinoma of colon Mother Family history of diabetes mellitus in first degree relative Other Diabetes mellitus Family history of cardiovascular disease Family history of heart disease in male family member before age 55 Heart disease Social History Social History Smoking status: Unknown if ever smoked Alcohol intake: never Substance use: current Substance use type: does not use Gender identity (if verbalized by the patient): Male Spiritual care concerns: No Meds Home Medications and Allergies Home Medications Medication Instructions Recorded Confirmed Type rosuvastatin 10 mg tablet (Crestor) 10 mg PO DAILY 10/29/19 08/24/21 History cholecalciferol (vitamin D3) 50 50 mcg PO DAILY 01/28/20 08/24/21 History mcg (2,000 unit) capsule glucosamine-chondroitin 250 mg-200 2 tablet PO DAILY 01/28/20 08/24/21 History mg tablet (Osteo Bi-Flex) aspirin 81 mg tablet,delayed 81 mg PO DAILY 10/27/20 08/24/21 History release (Adult Aspirin Regimen) fluorouracil 5 % topical cream 1 applic topical BID PRN 09/21/21 Rx precancers 4 weeks #40 grams sodium,potassium,mag sulfates 17.5 See Rx Instructions PO .COMPLEX 05/06/22 Rx gram-3.13 gram-1.6 gram oral soln #354 mL (Suprep Bowel Prep Kit) Allergies Allergy/AdvReac Type Severity Reaction Status Date / Time No Known Allergies Allergy Verified 03/08/22 08:11 Exam Const: General: no acute distress Resp: Effort & Inspection: normal respiratory effort GI: Inspection: non-distended GI Palp: No abdominal tenderness and No Guarding due to palpation present (GI) Auscultation: normal bowel sounds Assessment and Plan Assessment and plan (1) BPH loc w urin obs/LUTS: Code(s): N40.1 - Benign prostatic hyperplasia with lower urinary tract symptoms Status: Acute Assessment and Plan: TURP
--- NOTE | 2022-10-04 10:59 | PC.NURSE ---
Report to the Outpatient Waiting Room, entrance under the green pavilion located off [address], at time __1100 on date ___10/13/22____. Planned Procedure Time: __1300 . Time changes happen often and if your time is changed the preop area will call you the afternoon before. - You and your visitor will be asked to self-screen and do not enter if you have any COVID symptoms. - Only one visitor is requested with a max of two and NO children visitors are allowed at this time. - The patient visitor may be requested to leave or wait in car when not with patient due to distancing restrictions. - A mask is optional within the hospital at this time. Patients may have clear liquids (water, carbonated beverages, clear teas, apple juice) until 3 hours prior to surgery with a maximum of 20 ounces. - No food from midnight until time of surgery - Infants may have breast milk until 4 hours before surgery, formula 6 hours prior to surgery. - Children will be allowed to drink immediately following surgery. If applicable, please bring a bottle or sippy cup to assist with drinking. Juice, water, soda, and popsicles are readily available. For infants on formula, please bring formula the day of surgery. Pacifiers are allowed. Take the following medications with a SIP of water the morning of surgery: ___NONE DO NOT STOP ANY OF YOUR OTHER PRESCRIPTION MEDICATIONS PRIOR TO SURGERY ?EXCEPT THE FOLLOWING Medications to discontinue per physician _PT STATES ___ASPIRIN AND MELOXICAM __7 DAYS PRE OP ___.LAST DOSE 10/05/22_. ALL VITAMINS AND SUPPLEMENTS 3 DAYS PRE OP.LAST DOSE Date to take last dose Please no make-up, nail moroccan, hairspray, perfume, deodorant, or body powder the day of surgery. No jewelry (including any body piercings) or valuables the day of surgery, leave them at home. Please take a shower or bath the night before, or the morning of, surgery with an antibacterial soap. Wear comfortable, loose fitting clothing. Children are encouraged to wear pajamas. - Jewelry must be removed prior to entering the operating room. Rings and piercings that are not removed may be cut off. - The hospital will not accept responsibility for valuables. - Please leave all valuables, including medications, at home the day of surgery. If you are going home after surgery, a licensed rental car ferry driver must drive you home. - NO public transportation without another adult if you receive anesthesia. - We recommend that an adult stay with you for 24 hours following discharge. - We also recommend that you do not drive, make important decision, drink alcoholic beverages, or take any drugs that were not prescribed by your health care provider for at least 24 hours after your discharge time. Follow any additional instructions given to you from your surgeon. If you or anyone in your household have experienced Covid symptoms in the past week, please notify your surgeon or the nurse liaison at the phone number below for possible testing. Telephone instructions given to __PATIENT and asked if any additional questions and then verbalized understanding. Patient advised to call surgeon office or pre surgery nurse liaison [phone] if any additional questions.
[2022-10-04 11:08] VITALS: BMI 28.4
--- NOTE | 2022-10-12 14:31 | WPDANESEPPF ---
Anes - Initial Pre Proc Eval Procedure: Operation Date: 10/13/22 13:00 Proposed Procedures p Trans Urethral Resection Prostate - David Sarkar MD Date/Time: 10/12/22 14:31 Surgeon: David Sarkar MD Pre Op Diagnosis: BPH Patient Data Age: 72 Gender: M Height: 1.8 m Weight: 92.6 kg Allergies Allergy/AdvReac Type Severity Reaction Status Date / Time No Known Allergies Allergy Verified 10/04/22 10:48 Home Medications Medication Instructions Recorded Confirmed Type rosuvastatin 10 mg tablet (Crestor) 10 mg PO DAILY 10/29/19 10/13/22 History cholecalciferol (vitamin D3) 50 50 mcg PO DAILY 01/28/20 10/13/22 History mcg (2,000 unit) capsule glucosamine-chondroitin 250 mg-200 2 tablet PO DAILY 01/28/20 10/13/22 History mg tablet (Osteo Bi-Flex) aspirin 81 mg tablet,delayed 81 mg PO DAILY 10/27/20 10/13/22 History release (Adult Aspirin Regimen) fluorouracil 5 % topical cream 1 applic topical BID PRN 09/21/21 10/13/22 Rx precancers 4 weeks #40 grams finasteride 5 mg tablet 5 mg PO DAILY 10/04/22 10/13/22 History meloxicam 15 mg tablet 15 mg PO PRN PRN Pain 10/04/22 10/13/22 History tamsulosin 0.4 mg capsule 0.4 mg PO DAILY 10/04/22 10/13/22 History Patient hx anesthesia problems: none Family hx anesthesia problems: none Results Review: All pre-operative results and documents have been reviewed as part of the pre-operative evaluation. [facility] Past Medical History Medical History (Updated 10/12/22 @ 14:32 by Donaldo Farris MD) Bilateral knee pain BPH (benign prostatic hyperplasia) Degenerative joint disease of knee High cholesterol Left knee DJD Overweight (BMI 25.0-29.9) Right knee DJD Right knee DJD Sleep apnea Family History Family History (Reviewed 03/08/22 @ 08:12 by Lori Clayton [facility]) Grandparent Carcinoma of colon Mother Family history of diabetes mellitus in first degree relative Other Diabetes mellitus Family history of cardiovascular disease Family history of heart disease in male family member before age 55 Heart disease Social History Social History Smoking status: Never smoker Alcohol intake: never Substance use: current Substance use type: does not use Living arrangements: with family Gender identity (if verbalized by the patient): Male Spiritual care concerns: No Anes - Eval Final PreProcedure Day of Procedure 10/12/22 14:31 Patient weight: overweight Heart: regular rate and rhythm Lungs: clear to auscultation and normal air movement Airway: Mallampati scale class II Neurological: alert and oriented Last oral intake: >/= 8 hours ASA classification: II Emergent: no Anesthetic plan: proceed Anesthesia type and monitoring: general LMA Results Review: All pre-operative results and documents have been reviewed as part of the pre-operative evaluation. Informed Consent: The patient's anesthetic plan and its attendant risks and benefits were discussed with the patient/family/POA. Questions were solicited and answers provided to the satisfaction of the patient/family/POA.
[2022-10-13] VITALS (16 sets, daily range): BP systolic 102–146; BP diastolic 71–94; PULSE 52–80; RESP 12–20; TEMP 36.1–36.7; O2SAT 94–100
--- NOTE | 2022-10-13 06:44 | WPDHPUPDATE1 ---
History and Physical Update Update Date/Time: 10/13/22 06:44 History and Physical has been reviewed, including an updated exam of the patient. There are NO changes in the patient's condition. Risks, benefits, and alternatives have been discussed and questions answered. Patient agrees to proceed with procedure.
--- NOTE | 2022-10-13 06:54 | WPDHPUPDATE1 ---
History and Physical Update Update Date/Time: 10/13/22 06:54 History and Physical has been reviewed, including an updated exam of the patient. There are NO changes in the patient's condition. Risks, benefits, and alternatives have been discussed and questions answered. Patient agrees to proceed with procedure.
[2022-10-13] MEDS: LACTATED RINGERS 1,000 ML 30 ML IV CONT (11:45)
[2022-10-13] MEDS: ceFAZolin 2 GM/D5W 50 ML 2 GM/50 ML BAG IVPB (13:03)
[2022-10-13] MEDS: LIDOCAINE HCL 2% GEL UROJET 10 ML PKG MUCOUS MEM (13:15)
--- NOTE | 2022-10-13 14:28 | P.OP_ITS ---
Procedure Note - Detailed Date of Procedure 10/13/22 Pre-op Diagnosis BPH Post-op Diagnosis Same Procedure Performed TURP Surgeon David Sarkar MD Anesthesia General Description of Procedure The patient was brought to the operative suite where he is prepped and draped in routine sterile fashion while in the dorsal lithotomy position after the uneventful induction of a general LMA anesthetic. A 25 [place] resectoscope sheath was placed into his bladder. He had no urethral strictures. The patient had trilobar hyperplasia with a moderate-large median lobe. The bladder itself was endoscopically normal, showing no mucosal hyperemia, intravesical neoplasm or foreign bodies. There was a single, orthotopic ureteral orifice bilaterally. These orifices were identified and preserved throughout the remainder of the procedure. Attention was first turned to resection of the median lobe. This resection was undertaken from the bladder neck to the verumontanum and carried out until the transverse fibers of the bladder neck were identified. The left lateral lobe was then resected starting at the 6 o'clock position, working counter clockwise to the 12 o'clock position. Again, resection was carried out from the bladder neck to the verumontanum until the capsular fibers of the prostate were identified. The right lateral lobe was resected in a similar fashion starting at the 6 o'clock position working clockwise to the 12 o'clock position and carried out until the capsular fibers of the prostate were identified. Apical tissue was then circumferentially resected. All chips were evacuated from the bladder using an [employer] evacuator. Hemostasis was obtained with electric cautery. The ureteral orifices were again inspected and found to be without injury. Estimated blood loss throughout this procedure was 100cc. The patient was taken to recovery room having tolerated this well. Estimated Blood Loss -100.0 Drains Yes Packing No Pathology Yes Complications No immediate complications Condition Stable Disposition PACU
[2022-10-13] MEDS: DOCUSATE SODIUM 100 MG CAPSULE PO (18:24)
[2022-10-13] MEDS: HYOSCYAMINE SULFATE 0.125 MG TABLET SUBLINGUAL (21:41)
[2022-10-14] VITALS (8 sets, daily range): BP systolic 95–140; BP diastolic 1–81; PULSE 64–81; RESP 14–18; TEMP 36.4–37; O2SAT 96–100
[2022-10-14 06:18] LABS: Hematocrit 43.9 % (42.0-52.0); Hemoglobin 14.5 g/dL (14.0-18.0)
[2022-10-14 06:32] LABS: Anion Gap 9 mmol/L (8-16); Blood Urea Nitrogen 18 mg/dL (9-20); Calcium 8.8 mg/dL (8.4-10.2); Carbon Dioxide 23 mmol/L (22-30); Chloride 104 mmol/L (98-107); Estimated CRCL calculation 67 ml/min; Estimated Glomerular Filt Rate > 60; Glucose 154 mg/dL (65-110); Potassium 4.1 mmol/L (3.4-5.0); Sodium 136 mmol/L (137-145)
--- NOTE | 2022-10-14 06:46 | WPDUROPN2 ---
Progress Note: A&P Assessment and Plan (1) BPH loc w urin obs/LUTS: Code(s): N40.1 - Benign prostatic hyperplasia with lower urinary tract symptoms Status: Acute Assessment and Plan: Doing well POD #1 s/p TURP Urine minimally pink on very slow CBI Will stop CBI this morning. Voiding trial this morning or tomorrow morning, depending on color of urine. Subjective Subjective Date/Time Seen: 10/14/22 06:46 Comfortable, no complaints Review of Systems Cardiovascular: Cardiovascular: Denies chest pain, Denies lightheadedness, Denies palpitations and Denies dyspnea Respiratory: Respiratory: Denies dyspnea Gastrointestinal: Gastrointestinal: Denies diarrhea, Denies nausea and Denies vomiting Genitourinary: Genitourinary: Denies hematuria and Denies dysuria Endocrine: Endocrine: Denies palpitations Exam Const: General: no acute distress Resp: Effort & Inspection: normal respiratory effort GI: Inspection: non-distended GI Palp: No abdominal tenderness and No Guarding due to palpation present (GI) Auscultation: normal bowel sounds Urinary Catheter: Urinary Catheter: patent and draining and urine pink Objective Data Vital Signs Vital Signs: Vital Signs - 24 hr 10/13/22 11:07 10/13/22 14:17 10/13/22 14:30 Temperature 98.0 F 97.0 F L Pulse Rate 70 57 L 56 L Respiratory Rate 20 12 18 Blood Pressure 141/88 H 128/93 H 136/80 Pulse Oximetry 100 98 100 Oxygen Delivery Room Air Simple Face Mask Simple Face Mask Oxygen Flow Rate 6 6 10/13/22 14:40 10/13/22 14:45 10/13/22 15:00 Temperature Pulse Rate 55 L 53 L Respiratory Rate 18 18 Blood Pressure 125/93 H 146/80 H Pulse Oximetry 100 94 Oxygen Delivery Room Air Room Air Room Air Oxygen Flow Rate 10/13/22 15:15 10/13/22 15:30 10/13/22 15:45 Temperature Pulse Rate 53 L 52 L 53 L Respiratory Rate 16 16 16 Blood Pressure 144/77 H 135/94 H 131/92 H Pulse Oximetry 98 99 98 Oxygen Delivery Room Air Room Air Room Air Oxygen Flow Rate 10/13/22 16:00 10/13/22 16:15 10/13/22 16:45 Temperature Pulse Rate 54 L 53 L 61 Respiratory Rate 16 16 16 Blood Pressure 137/78 137/84 129/90 Pulse Oximetry 97 97 100 Oxygen Delivery Room Air Room Air Room Air Oxygen Flow Rate 10/13/22 17:19 10/13/22 17:34 10/13/22 18:04 Temperature Pulse Rate 60 60 66 Respiratory Rate 18 18 18 Blood Pressure 116/91 H 129/77 131/83 Pulse Oximetry 98 98 98 Oxygen Delivery Oxygen Flow Rate 10/13/22 19:04 10/13/22 19:47 10/13/22 19:46 Temperature 97.6 F Pulse Rate 62 80 Respiratory Rate 18 16 Blood Pressure 112/72 102/71 Pulse Oximetry 98 98 Oxygen Delivery Room Air Oxygen Flow Rate 10/13/22 20:00 10/14/22 02:00 10/14/22 05:52 Temperature 97.7 F 97.7 F Pulse Rate 74 64 Respiratory Rate 14 16 Blood Pressure 95/1 L 109/70 Pulse Oximetry 97 100 Oxygen Delivery Room Air Oxygen Flow Rate Intake/Output Intake/Output: Intake & Output 10/11/22 10/12/22 10/13/22 10/14/22 23:59 23:59 23:59 23:59 Intake Total 8450 Output Total 9200 2075 Balance 750 -1692 Meds/Results Medications: Active Medications Generic Name Dose Route Start Last Admin Trade Name Freq PRN Reason Stop Dose Admin Hydrocodone Bitart/Acetaminophen 1 tab 10/13/22 17:01 Hydrocodone/Acetaminophen (*Crx) 5-325 Mg Tablet PO Q4H PRN Pain Rated 1-6 Cephalexin HCl 500 mg 10/14/22 09:00 Cephalexin 500 Mg Capsule PO QID RAQUEL Docusate Sodium 100 mg 10/13/22 18:00 10/13/22 18:24 Docusate Sodium 100 Mg Capsule PO 100 mg BID RAQUEL Administration Hyoscyamine 0.125 mg 10/13/22 17:01 10/13/22 21:41 Hyoscyamine Sulfate 0.125 Mg Tablet SUBLINGUAL 0.125 mg Q6H PRN Administration Bladder Spasm Miscellaneous Information 1 each 10/13/22 17:10 Fluorouracil Cream Nonformulary. Can Patient Bring From Home? Or Can It Be Held Till Disch XX 11/12/22 17:09 CLARIFY
[2022-10-14] MEDS: CEPHALEXIN 500 MG CAPSULE PO ×4 (08:20→21:37)
[2022-10-14] MEDS: DOCUSATE SODIUM 100 MG CAPSULE PO ×2 (08:20→17:04)
[2022-10-14] MEDS: ROSUVASTATIN 10 MG TABLET PO (08:20)
--- NOTE | 2022-10-14 14:37 | WPDANESPN ---
Anes - Prog Note Post-Op Date/Time: 10/14/22 14:37 Vital Signs: Last Vital Signs Temp 36.9 C 10/14/22 13:02 Pulse 81 10/14/22 13:02 Resp 17 10/14/22 13:02 BP 137/77 10/14/22 13:02 Pulse Ox 97 10/14/22 13:02 O2 Del Method Room Air 10/14/22 08:20 O2 Flow Rate 6 10/13/22 14:30 Pain Score (VAS): 0 I/O: Intake & Output 10/13/22 10/14/22 10/14/22 23:59 07:59 15:59 Intake Total 6150 480 Output Total 4649 7925 Balance -650 -2624 480 Laboratory Tests 10/14/22 05:46 10/14/22 05:46 10/14/22 10/14/22 05:46 05:46 Hgb 14.5 Hct 43.9 Sodium 136 L Potassium 4.1 Chloride 104 Carbon Dioxide 23 Anion Gap 9 BUN 18 Creatinine 0.90 Estim Creat Clear Calc 67 Estimated GFR > 60 Glucose 154 H Calcium 8.8 Patient Feedback: Patient satisfied with anesthetic care.
[2022-10-14] MEDS: BISACODYL 5 MG TABLET EC 10 MG PO (17:03)
[2022-10-14] MEDS: HYOSCYAMINE SULFATE 0.125 MG TABLET SUBLINGUAL ×2 (17:06→23:12)
[2022-10-15 03:16] VITALS: BP 107/65; PULSE 63; RESP 18; TEMP 36.4; O2SAT 99
[2022-10-15] MEDS: ROSUVASTATIN 10 MG TABLET PO (08:32)
[2022-10-15] MEDS: DOCUSATE SODIUM 100 MG CAPSULE PO (08:32)
[2022-10-15] MEDS: CEPHALEXIN 500 MG CAPSULE PO ×2 (08:32→13:43)
--- NOTE | 2022-10-15 13:20 | WPDUROPN2 ---
Progress Note: A&P Assessment and Plan (1) BPH loc w urin obs/LUTS: Code(s): N40.1 - Benign prostatic hyperplasia with lower urinary tract symptoms Status: Acute Assessment and Plan: doing well at this time. Will have nurse check a postvoid residual. If minimal residual can be discharged home this morning. Subjective Subjective Date/Time Seen: 10/15/22 13:20 Post Op day: 2 ( Transurethral resection of prostate) Principal diagnosis: BPH Interval history: doing well overall without any significant complaints. Garza catheter Remove this morning. Patient is voiding pink colored urine. States he is voiding frequently Review of Systems Review of Systems: All systems reviewed & are unremarkable except as noted in HPI and below Exam Const: General: cooperative and comfortable Resp: Effort & Inspection: normal respiratory effort Cardio: Rate: regular rate Rhythm: regular rhythm Objective Data Vital Signs Vital Signs: Vital Signs - 24 hr 10/14/22 17:55 10/14/22 19:39 10/14/22 23:09 Temperature 36.9 C 36.4 C 36.9 C Pulse Rate 80 64 78 Respiratory Rate 17 17 18 Blood Pressure 123/79 120/80 140/81 Pulse Oximetry 100 97 96 Oxygen Delivery 10/14/22 20:00 10/15/22 03:16 10/15/22 08:15 Temperature 36.4 C L Pulse Rate 63 Respiratory Rate 18 Blood Pressure 107/65 Pulse Oximetry 99 Oxygen Delivery Room Air Room Air Intake/Output Intake/Output: Intake & Output 10/12/22 10/13/22 10/14/22 10/15/22 23:59 23:59 23:59 23:59 Intake Total 8450 2370 880 Output Total 9200 3955 550 Balance -750 -1585 330 Meds/Results Medications: Active Medications Generic Name Dose Route Start Last Admin Trade Name Freq PRN Reason Stop Dose Admin Hydrocodone Bitart/Acetaminophen 1 tab 10/13/22 17:01 Hydrocodone/Acetaminophen (*Crx) 5-325 Mg Tablet PO Q4H PRN Pain Rated 1-6 Cephalexin HCl 500 mg 10/14/22 09:00 10/15/22 08:32 Cephalexin 500 Mg Capsule PO 500 mg QID RAQUEL Administration Docusate Sodium 100 mg 10/13/22 18:00 10/15/22 08:32 Docusate Sodium 100 Mg Capsule PO 100 mg BID RAQUEL Administration Hyoscyamine 0.125 mg 10/13/22 17:01 10/14/22 23:12 Hyoscyamine Sulfate 0.125 Mg Tablet SUBLINGUAL 0.125 mg Q6H PRN Administration Bladder Spasm Miscellaneous Information 1 each 10/13/22 17:10 Fluorouracil Cream Nonformulary. Can Patient Bring From Home? Or Can It Be Held Till Disch XX 11/12/22 17:09 CLARIFY [facility] Miscellaneous Information 1 each 10/13/22 17:15 Meloxicam Duplicate Prn Indication With Current Pain Meds. Hold Till Discharge? XX 11/12/22 17:14 CLARIFY [facility] Morphine Sulfate 2 mg 10/13/22 17:01 Morphine Sulfate (*Crx) 2 Mg/Ml Inj IV PUSH Q2H PRN Pain Rated 7-10 Naloxone HCl 0.1 mg 10/13/22 17:01 Naloxone Hcl 0.4 Mg/Ml Vial IV PUSH Q2M PRN Opiate Reversal Non-Formulary Medication 1 applic 10/13/22 17:01 Fluorouracil TOPICAL BID PRN precancers Non-Formulary Medication 15 mg 10/13/22 17:01 Meloxicam PO PRN PRN Pain Ondansetron HCl 4 mg 10/13/22 17:01 Ondansetron Inj 4 Mg/2 Ml Vial IV PUSH Q12H PRN Nausea And Vomiting Rosuvastatin Calcium 10 mg 10/14/22 09:00 10/15/22 08:32 Rosuvastatin 10 Mg Tablet PO 10 mg DAILY RAQUEL Administration
--- NOTE | 2022-10-17 17:36 | PM.DS ---
DS: Admitting Diagnosis Discharge Date 10/15/22 Admitting Diagnosis BPh DS: Discharge Diagnosis Discharge Diagnosis (1) BPH (benign prostatic hyperplasia): Code(s): N40.0 - Benign prostatic hyperplasia without lower urinary tract symptoms Status: Acute DS: Summary Hospital Course Hospital Course: This patient with longstanding prostatism refractory for medical management was admitted on the morning of his planned TURP. The procedure was undertaken on that same day in an uneventful fashion. His post-operative course was, likewise, uneventful. On the evening of the procedure he was tolerating a diet. By POD #2 his urine was clear on CBI. The urine remained clear and, therefore, the catheter was removed late morning. The patient was observed for several hours, until he demonstrated he could void effectively without significant hematuria. He was discharged with careful instruction on limiting physical activity x2 weeks and plans to f/ in 2-3 weeks. At discharge he was comfortable and tolerating a diet. Time Spent with Patient Time attestation: Total time spent providing and/or coordinating discharge services: DS: Data Data Completed and Pending Completed studies during hospitalization: Pending at discharge 10/13/22 13:30 Surgical [PTH] Routine Discharge Plan Discharge Attending physician on discharge: David Sarkar Consulting providers: Donaldo Farris ; Katharina Garcia Discharging Clinician: David Sarkar Patient Disposition: Home, Self-Care Activity: other - see discharge instructions Diet: other - see discharge instructions Discharge Instructions: 1) Activity: No lifting/straining >15lbs. x2 weeks. 2) Diet: Resume normal pre-admission diet. 3) Follow-up: 2-3 weeks / call office for appointment ([phone]). Patient Instructions: Hematuria (GEN) Stand Alone Forms: General Discharge Instructions Follow-up/Referrals: David Sarkar MD [Physician] - Discharge Medications: New hydrocodone-acetaminophen 5-325 mg tablet 1 - 2 tablet PO Q6H PRN (Reason: pain) Qty: 20 0RF sulfamethoxazole-trimethoprim 800-160 mg tablet 1 tablet PO Q12H Qty: 6 0RF docusate sodium [Colace] 100 mg capsule 100 mg PO DAILY Qty: 30 0RF Continued rosuvastatin [Crestor] 10 mg tablet 10 mg PO DAILY cholecalciferol (vitamin D3) 50 mcg (2,000 unit) capsule 50 mcg PO DAILY fluorouracil 5 % cream 1 applic topical BID PRN (Reason: precancers) 28 Days Qty: 40 1RF Rx Instructions: apply sufficient amount to cover all lesions meloxicam 15 mg tablet 15 mg PO PRN PRN (Reason: Pain) Held aspirin [Adult Aspirin Regimen] 81 mg tablet,delayed release (DR/EC) 81 mg PO DAILY Hold Instructions: Resume on 10/20/22. Discontinued finasteride 5 mg tablet 5 mg PO DAILY tamsulosin 0.4 mg capsule 0.4 mg PO DAILY Date of admission: 10/14/22 15:20 Primary Care Provider: PaoMarcell Admitting Provider: David Sarkar Attending physician on admission: Aki Abel Condition: Stable
== END 2022-10-15 15:26 | disposition home or self-care (01) ==
LOC: ANHSURGERY 15:21 → ANH2MED 10-15 14:33
PROVIDERS: Admitting Provider Urology; PCP Internal Medicine; Visit Provider Urology
PROC: 0VT08ZZ Resection of Prostate, Via Natural or Artificial Opening Endoscopic (ICD-10-PCS; CPT 52601; principal; 2022-10-13 13:00)
DX: N40.1 Benign prostatic hyperplasia with lower urinary tract symptoms (principal); E78.00 Pure hypercholesterolemia, unspecified; M17.0 Bilateral primary osteoarthritis of knee; Z79.82 Long term (current) use of aspirin; Z79.899 Other long term (current) drug therapy
CPT/HCPCS: 52601; 36415; 80048; 85014; 85018; 88305; A9270; C1757; G0378; G0379; J0690; J1100; J2001; J2405; J2704; J3010; J7120

== ENCOUNTER 2023-08-15 12:57 | Outpatient (NON) | payer MEDICARE, SELFPAY | END 2023-08-15 12:58 | disposition home or self-care (01) | PROVIDERS: PCP Internal Medicine; Visit Provider Nurse Practitioner | DX: C44.729 Squamous cell carcinoma of skin of left lower limb, including hip (principal); C44.329 Squamous cell carcinoma of skin of other parts of face | CPT/HCPCS: 88305 ==

== ENCOUNTER 2023-08-17 08:04 | Outpatient (CLI) | payer MEDICARE, SELFPAY ==
--- NOTE | 2023-08-17 | EST_ITS ---
Patient Info Name: Annel Jenkins Age: 72 years : 1950 Gender: Male Ht: 72 in Wt: 212 lbs BSA: 2.23 m2 HR: 59 bpm BP: 143 / 86 mmHg Heart Rhythm: Sinus Rhythm Exam Date: 08/17/2023 9:16 AM Exam Location: Echo Lab Patient Status: Outpatient Admit Date: 08/17/2023 Staff Ordering Physician: Rory, Marcell PEARSON Attending Provider: Rory, Marcell PEARSON Exercise Technologist: Xiao Owen CT Nurse: Gifty Jackson APN Exercise Physician: Mustapha Mitchell MD Exam Type: CA stress gavin w NM Study Info Indications R06.09 - Other forms of dyspnea A regadenoson stress test was performed. Summary 1. No ST/T wave changes with Lexiscan administration meeting strict criteria for reversible myocardial ischemia. 2. No arrhythmias were observed during the examination. 3. No chest discomfort with stress test. 4. Please correlate with nuclear medicine images, reported separately. Protocol: Lexiscan Stress ECG Details Stage: REST Duration (min): 0 min : 55 sec HR (bpm): 59 SBP (mmHg): 143 DBP (mmHg): 86 Stage: REST Duration (min): 7 min : 27 sec HR (bpm): 62 SBP (mmHg): 143 DBP (mmHg): 86 Stage: STAGE 1 Duration (min): 0 min : 59 sec HR (bpm): 73 SBP (mmHg): 138 DBP (mmHg): 87 Stage: RECOVERY Duration (min): 1 min : 0 sec HR (bpm): 91 SBP (mmHg): 138 DBP (mmHg): 87 Stage: RECOVERY Duration (min): 2 min : 0 sec HR (bpm): 89 SBP (mmHg): 138 DBP (mmHg): 87 Stage: RECOVERY Duration (min): 3 min : 0 sec HR (bpm): 80 SBP (mmHg): 122 DBP (mmHg): 81 Stage: RECOVERY Duration (min): 4 min : 0 sec HR (bpm): 75 SBP (mmHg): 122 DBP (mmHg): 81 Stage: RECOVERY Duration (min): 4 min : 49 sec HR (bpm): 73 SBP (mmHg): 128 DBP (mmHg): 81 Rest HR: 62 bpm Peak HR: 91 bpm Rest Sys BP: 143 mmHg Peak Sys BP: 138 mmHg Max Pred HR: 146 bpm % Max Pred HR: 62 % Target HR: 124 bpm Max RPP: 12,558 bpm*mmHg BP Response: Normal blood pressure response Termination Reason: Completed protocol Cardiac Symptoms: None Total Time: 1 min : 0 sec Rest Flores BP: 86 mmHg Peak Flores BP: 87 mmHg Total Dose: 0.4 mg Resting ECG Sinus bradycardia incomplete right bundle-branch block. Stress ECG No ST/T wave changes with Lexiscan administration meeting strict criteria for reversible myocardial ischemia. Arrhythmias No arrhythmias were observed during the examination. Report Signatures Amended by Mustapha Mitchell on 08/17/2023 13:23
--- NOTE | ~2023-08-17 | NM_ITS ---
EXAMINATION: NM gavin stress w perfusion DATE: 08/17/2023 11:00 INDICATION: Other forms of dyspnea TECHNIQUE: Rest images were obtained following intravenous administration of 10.2 mCi Tc99m tetrofosm in (Myoview). The patient was infused intravenously with Lexiscan (Regadenoson). Then, 33.6 mCi Tc99m tetrofosmin (Myoview) was administered intravenously, and stress images were obtained. Data was kandi nstructed into short axis and horizontal and vertical long axis SPECT images. Gated SPECT images were also obtained. COMPARISON: None. FINDINGS: There is no definite reversible or fixed perfusion abnormality to suggest ischemia or infar ction. There is normal left ventricular chamber size, wall motion and ejection fraction. Left ventr icular ejection fraction measures >70%. IMPRESSION: 1. Normal myocardial perfusion at rest and during stress. 2. Left ventricular ejection fraction measuring >70%. Reviewed, dictated and finalized at location A. OR [employer]LINE MARKETING MANAGER
== END 2023-08-17 08:05 | disposition home or self-care (01) ==
PROVIDERS: PCP Internal Medicine; Visit Provider Internal Medicine
DX: R06.09 Other forms of dyspnea (principal)
CPT/HCPCS: 78452; 93017; A9502; J2785

== ENCOUNTER 2023-09-01 14:12 | Outpatient (CLI) | payer MEDICARE, SELFPAY ==
--- NOTE | ~2023-09-01 | XR_ITS ---
EXAMINATION: XR hip BI wo pelvis DATE: 09/01/2023 14:34 INDICATION: Bilateral hip pain. TECHNIQUE: 2 views of right hip and 2 views of left hip were obtained. COMPARISON: None. FINDINGS: Bone alignment is normal. No fracture. The hip joint spaces are normal. IMPRESSION: 1. Normal hips. Reviewed, dictated and finalized at location E. ROLLER IMPRESSION: 1. Normal hips.
--- NOTE | ~2023-09-01 | XR_ITS ---
EXAMINATION: XR lumbar spine 2-3V DATE: 09/01/2023 14:34 INDICATION: Low back pain. TECHNIQUE: 3 views of lumbar spine were obtained. COMPARISON: None. FINDINGS: There is 15 degrees levoscoliosis of thoracolumbar spine. There is 5 mm retrolisthesis of L 2 on L3 and 8 mm anterolisthesis of L4 on L5. Vertebral body heights are normal. There is mildly decr eased disc height at L1-L2, severely decreased disc height at L2-L3, mildly decreased disc height at L3-L4, and severely decreased disc height at L4-L5. There is multilevel severe facet joint osteoarthr itis. IMPRESSION: 1. Severe lumbar spondylosis. 2. Lumbar levoscoliosis. Reviewed, dictated and finalized at location E. H ATTENDANT
== END 2023-09-01 14:13 | disposition home or self-care (01) ==
PROVIDERS: PCP Internal Medicine; Visit Provider Internal Medicine
DX: M25.551 Pain in right hip (principal); M25.552 Pain in left hip; M47.896 Other spondylosis, lumbar region
CPT/HCPCS: 72100; 73521

== ENCOUNTER 2023-09-28 12:33 | Outpatient (CLI) | payer MEDICARE, SELFPAY ==
--- NOTE | ~2023-09-28 | MR_ITS ---
MRI of the lumbar spine Clinical History: Back pain Technique: Axial T2-weighted images, and sagittal T1-weighted, T2-weighted, and T2 fat-sat images wer e acquired. Findings: There is no fracture of the lumbar spine. There is 5 mm retrolisthesis of L2 over L3. There is 6 mm anterolisthesis of L4 over L5. No suspicious bone marrow signal abnormality seen. At L1-L2, there is mild degenerative disc 9. There is mild disc bulge with moderate facet arthropathy . No central canal stenosis or neural foraminal narrowing. At L2-L3, there is advanced degenerative disc narrowing. There is disc bulge and mild facet arthropat hy. No central canal stenosis. There is severe right neural foraminal narrowing, and mild left neural foraminal narrowing. At L3-L4, there is diffuse disc bulge and advanced facet arthropathy, with severe spinal canal stenos is/thecal sac compression. There is severe bilateral neural foraminal narrowing. At L4-L5, there is severe degenerative disc narrowing. There is disc bulge/uncovering with severe fac et arthropathy. There is minimal central canal stenosis. There is moderate to severe bilateral neural foraminal narrowing. At L5-S1, there is diffuse disc bulge and advanced facet arthropathy. There is relative compression o f the thecal sac, largely due to prominent epidural fat at this level. There is severe left neural fo raminal narrowing, and moderate to severe right neural foraminal narrowing. Impression: Advanced degenerative spondylosis, as detailed above, probably worst at L3-L4. 5 mm retrolisthesis of L2 over L3. 6 mm anterolisthesis of L4 over L5. Reviewed, dictated and finalized at [facility]. [employer] Impression: Advanced degenerative spondylosis, as detailed above, probably worst at L3-L4. 5 mm retrolisthesis of L2 over L3. 6 mm anterolisthesis of L4 over L5.
== END 2023-09-28 12:34 | disposition home or self-care (01) ==
PROVIDERS: PCP Internal Medicine; Visit Provider Internal Medicine
DX: M47.896 Other spondylosis, lumbar region (principal)
CPT/HCPCS: 72148

== ENCOUNTER 2023-12-19 08:00 | Outpatient (RCR) | payer MEDICARE, SELFPAY ==
--- NOTE | 2023-10-09 12:39 | OPREHPOC ---
Outpatient Therapy Plan of Care This is a Multidisciplinary Plan of Care that may contain components documented by all disciplines (PT, OT, and ST.) PT Problem 1 PT Problem #1 Knowledge Deficit PT Goal 1 Goal Pt to be IND with issued HEP Target Visit 8 PT Problem 2 PT Problem #2 Pain PT Goal 1 Goal Pt to report low back pain no greater than 3/10 in the last week. Target Visit 8 PT Goal 2 Goal Pt to report 50% improvement in overall symptoms. PT Problem 3 PT Problem #3 Impaired Functional Mobil PT Goal 1 Goal Pt to demonstrate a functional lift and carry with 20lb without compensations PT Goal 2 Goal Pt to be able to play full round of golf without an increase in back pain. Target Visit 8 PT Goal 1 Goal Pt to decline radicular symptoms in the last week. Target Visit 8
--- NOTE | 2023-10-09 12:39 | PTOPEVAL1 ---
Assessment and note entered by Sharmin Gautam, PT, DPT Evaluation Information Assessment Status Evaluation Diagnosis low back pain, lumbar spinal stenosis Subjective Information Pt reports he is having back pain that intermittently causes symptoms to go down his L leg. He states he is limited in how long he can stand/walk, he can stand for no longer than 10 minutes and walk no longer than 10-15 mins before needing to sit down. He states his sleep is disturbed but not to where he needs to take any medication. Pt reports he likes to play golf. Reported Pain Level Pain Score 2: Self Report Assessment PT Clinical Summary Annel presents to therapy today for his initial evaluation with a diagnosis of low back pain with imaging showing degenerative spondylosis. Today he demonstrates postural deviations in standing and during ambulation. He stands with a flattened lumbar spine. He reports L sided radicular symptoms and has decreased core strength. Skilled therapy services are indicated to address the deficits noted above, to manage pain, and to improve functional mobility. Plan of Care Interventions Electrical Stimulation,Gait Training,Hot Pack/Cold Pack,Manual Therapy,Mechanical Traction,Neuro Re- education,Patient/Caregiver Educati,Therapeutic Activities,Therapeutic Exercise PT Services Indicated Yes Treatment Frequency and 2x/wk for 4 weeks Duration These treatments will address the objective and functional deficits as defined above. The patient will be advanced safely and appropriately in order for the patient to progress towards his/her prior level of function. Additional exercises will be introduced and as well as a comprehensive home exercise program upon discharge, if needed, ?to ensure carryover of functional gains achieved in the clinic. This treatment plan has been reviewed and agreement upon by the patient.
--- NOTE | 2023-11-06 08:58 | PTOPPROG ---
Assessment and note entered by Sharmin Gautam, PT, DPT Evaluation Information Assessment Status Progress Diagnosis low back pain, lumbar spinal stenosis Subjective Information Pt states he was able to play golf yesterday with virtually no discomfort but by the end of the day his left leg started to ache. He states he went to a wedding this weekend and his legs hurt so bad it was hard to stand. He states since starting therapy he feels stronger, and knows how to protect his back more. Assessment PT Clinical Summary Annel presents to therapy today for his progress report following 8 visits of skilled therapy to treat his diagnosis of low back pain with imaging showing degenerative spondylosis. He continues to stand with an anterior weight shift increasing he lumbar extension. He continues to demonstrates decreased core and functional LE strength. Continuation of skilled therapy services are indicated to address the deficits noted above, to manage pain, and to improve functional mobility. Plan of Care Interventions Electrical Stimulation,Gait Training,Hot Pack/Cold Pack,Manual Therapy,Mechanical Traction,Neuro Re- education,Patient/Caregiver Educati,Therapeutic Activities,Therapeutic Exercise PT Services Indicated Yes Treatment Frequency and 1x/wk for 6 visits Duration These treatments will address the objective and functional deficits as defined above. The patient will be advanced safely and appropriately in order for the patient to progress towards his/her prior level of function. Additional exercises will be introduced and as well as a comprehensive home exercise program upon discharge, if needed, ?to ensure carryover of functional gains achieved in the clinic. This treatment plan has been reviewed and agreement upon by the patient.
--- NOTE | 2023-12-19 08:56 | PTOPDC ---
Assessment and note entered by Sharmin Gautam, PT, DPT Evaluation Information Assessment Status Discharge Diagnosis low back pain, lumbar spinal stenosis Subjective Information Pt states he has been taking some Ibuprofen for pain management for both his back and knees and it has been really helpful. He continues to reports activity dependent knee pain. Reported Pain Level Pain Score 3: Self Report Assessment PT Clinical Summary Annel presents to therapy today for his progress report following 14 visits of skilled therapy to treat his diagnosis of low back pain with imaging showing degenerative spondylosis. His core strength and movement mechanics have improved since starting therapy without a decrease in pain. He continues to ambulate with deviations d/t kassandra knee pain. He is IND with his HEP and plan to continue with this until he can get his knee replacement scheduled. Plan of Care PT Services Indicated No
== END 2023-12-19 10:23 | disposition home or self-care (01) ==
LOC: ANHGOSHPT 08:00
PROVIDERS: PCP Internal Medicine; Visit Provider Anesthesiology Pain Medicine
DX: M48.062 Spinal stenosis, lumbar region with neurogenic claudication (principal)
CPT/HCPCS: 97012; 97110; 97112; 97140; 97161; 97530

== ENCOUNTER 2024-02-05 08:48 | Outpatient (CLI) | payer MEDICARE, SELFPAY ==
--- NOTE | 2024-02-05 09:40 | ECG_ITS ---
Test Date: 2024-02-05 09:56:28 Measurements Intervals [place] Rate: 66 P: 0 FL: 0 QRS: 35 QRSD: 97 T: 29 QT: 408 QTc: 430 Interpretive Statements SINUS RHYTHM MINOR NONSPECIFIC T-WAVE ABNORMALITY BORDERLINE ECG No previous ECG available for comparison Electronically Signed On 02-05-2024 13:05:55 CDT by Marcell Rogers M.D.
[2024-02-05 10:27] LABS: Basophils Percent Auto 0.5 % (0.2-1.2); Eosinophils Absolute Auto 0.1 K/mm3 (0-0.3); Eosinophils Percent Auto 1.1 % (0-4.4); Hematocrit 49.5 % (42.0-52.0); Hemoglobin 16.1 g/dL (14.0-18.0); Immature Granulocyte Absolute 0.01 K/mm3 (0.00-0.031); Immature Granulocyte Percent A 0.1 % (0-0.5); Lymphocytes Absolute Auto 2.32 K/mm3 (0.9-3.2); Lymphocytes Percent Auto 31.7 % (18.3-44.2); Mean Corpuscular HGB Conc 32.5 g/dl (32-36); Mean Corpuscular Hemoglobin 28.6 pg (26-34); Mean Corpuscular Volume 88.1 fl (80-100); Mean Platelet Volume 10.7 fl (7.4-10.4); Monocytes Absolute Auto 0.8 K/mm3 (0.1-0.6); Monocytes Percent Auto 10.3 % (2.6-8.5); Neutrophils Absolute Auto 4.1 K/mm3 (1.3-6.7); Neutrophils Percent Auto 56.3 % (45.5-73.1); Platelet Count Result 204 k/mm3 (150-375); Red Blood Count 5.62 M/mm3 (4.6-6.20); Red Cell Distribution Width 14.4 % (11.5-14.5); White Blood Count 7.3 K/mm3 (4.5-10.0)
[2024-02-05 10:37] LABS: Albumin Level 4.4 g/dL (3.5-5.1); Anion Gap 8 mmol/L (4-12); Blood Urea Nitrogen 23 mg/dL (9-20); Calcium 9.5 mg/dL (8.4-10.2); Carbon Dioxide 25 mmol/L (22-30); Chloride 105 mmol/L (98-107); Estimated Glomerular Filt Rate > 60; Glucose 92 mg/dL (65-110); Potassium 4.1 mmol/L (3.4-5.0); Sodium 138 mmol/L (137-145)
[2024-02-05 10:40] LABS: Urine Cotinine NEGATIVE
[2024-02-05 10:50] LABS: Hemoglobin A1C 5.5 % (<5.7)
== END 2024-02-05 08:49 | disposition home or self-care (01) ==
PROVIDERS: PCP Internal Medicine; Visit Provider Orthopaedic Surgery
DX: M17.0 Bilateral primary osteoarthritis of knee (principal); Z01.818 Encounter for other preprocedural examination; R94.31 Abnormal electrocardiogram [ECG] [EKG]
CPT/HCPCS: 80048; 80307; 82040; 83036; 85025; 87081; 87181; 93005

== ENCOUNTER 2024-02-22 01:21 | Day surgery (SDC) | payer MEDICARE, SELFPAY ==
[2024-02-05 08:59] VITALS: BMI 29.2
--- NOTE | 2024-02-05 09:17 | PC.NURSE ---
Report to the Outpatient Waiting Room, entrance under the green pavilion located off [facility], at time ___9:30 AM____ on date __02/22/24 . Planned Procedure Time: _11:30 AM . Time changes happen often and if your time is changed the preop area will call you the afternoon before. - You and your visitor will be asked to self-screen and do not enter if you have any COVID symptoms. - A mask is optional within the hospital at this time. Patients may have clear liquids (water, carbonated beverages, clear teas, apple juice) until 3 hours prior to surgery(8:30AM) with a maximum of 20 ounces. - No food from midnight until time of surgery - Infants may have breast milk until 4 hours before surgery, infant formula 6 hours prior to surgery. - Children will be allowed to drink immediately following surgery. If applicable, please bring a bottle or sippy cup to assist with drinking. Juice, water, soda, and popsicles are readily available. For infants on formula, please bring formula the day of surgery. Pacifiers are allowed. Take the following medications with a SIP of water the morning of surgery: __NONE DO NOT STOP ANY OF YOUR OTHER PRESCRIPTION MEDICATIONS PRIOR TO SURGERY ?EXCEPT THE FOLLOWING Medications to discontinue per physician HOLD ALL VITAMINS AND SUPPLEMENTS 3 DAYS PRE OP .LAST DOSE 02/18/24. HOLD IBUPROFEN 7 DAYS PRE OP PER DR TINAJERO.LAST DOSE 02/14 24 Please no make-up, nail tajik, hairspray, perfume, deodorant, or body powder the day of surgery. No jewelry (including any body piercings) or valuables the day of surgery, leave them at home. Please take a shower or bath the night before, or the morning of, surgery with an antibacterial soap. Wear comfortable, loose fitting clothing. Children are encouraged to wear pajamas. - Jewelry must be removed prior to entering the operating room. Rings and piercings that are not removed may be cut off. - The hospital will not accept responsibility for valuables. - Please leave all valuables, including medications, at home the day of surgery. If you are going home after surgery, a licensed hazardous materials driver must drive you home. - NO public transportation without another adult if you receive anesthesia. - We recommend that an adult stay with you for 24 hours following discharge. - We also recommend that you do not drive, make important decision, drink alcoholic beverages, or take any drugs that were not prescribed by your health care provider for at least 24 hours after your discharge time. Follow any additional instructions given to you from your surgeon. If you or anyone in your household have experienced Covid symptoms in the past week, please notify your surgeon or the nurse liaison at the phone number below for possible testing. VERAL AND WRITTEN instructions given to ___PATIENT and asked if any additional questions and then verbalized understanding. Patient advised to call surgeon office or pre surgery nurse liaison [phone] if any additional questions.
[2024-02-05 09:33] VITALS: BP 119/80; PULSE 83; RESP 18; TEMP 36.9; O2SAT 98
--- NOTE | 2024-02-19 12:16 | PM.IMHP ---
H&P: [facility] History of Present Illness Date/Time: 02/19/24 12:16 Chief Complaint: Bilateral knee DJD Narrative: 73-year-old male presents today for left total knee arthroplasty with cortisone injection into the right. Patient has been having pain in both of his knees for several years. Has progressively gotten worse. At this point is bothersome on a daily basis. He is an active 73-year-old and wishes to remain that way. His last cortisone injections were September of this year which only gave him 2 weeks of relief. Take ibuprofen on a regular basis this is not improving his symptoms. This point he feels he is ready for total knee arthroplasty. Review of Systems Review of Systems: All systems reviewed & are unremarkable except as noted in HPI and below PMFSH Past Medical History Medical History (Updated 12/31/23 @ 14:37 by Steve Dickey MD) Bilateral knee pain BPH (benign prostatic hyperplasia) Degenerative joint disease of knee High cholesterol Left knee DJD Overweight (BMI 25.0-29.9) Right knee DJD Right knee DJD Sleep apnea Surgical History Surgical History (Updated 12/20/23 @ 11:51 by Marisol Brunson CMA) History of transurethral resection of prostate Family History Family History Grandparent Carcinoma of colon Mother Family history of diabetes mellitus in first degree relative Other Diabetes mellitus Family history of cardiovascular disease Family history of heart disease in male family member before age 55 Heart disease Social History Social History (Updated 12/20/23 @ 11:52 by Marisol Brunson CMA) Smoking status: Never smoker Additional smoking assessment comments: DENIES ANY FORM OF TOBACCO USE Alcohol intake: never Substance use type: does not use Do You Feel Safe in your Home?: Yes Lack of Transportation: No Lack of Food: Never True Current Housing: I Have Housing Concerned About Future Housing: No Difficulty Paying Gas/Electric Bills: No Difficulty Paying for Meds: No Currently Unemployed: No Education: Bachelor's Degree Difficulty w/ Childcare or Family Care: No Living arrangements: with family Occupation/Education: retired Gender identity (if verbalized by the patient): Male Spiritual care concerns: No Meds Home Medications and Allergies Home Medications Medication Instructions Recorded Confirmed Type rosuvastatin 10 mg tablet (Crestor) 20 mg PO DAILY 10/29/19 02/05/24 History cholecalciferol (vitamin D3) 50 50 mcg PO DAILY 01/28/20 02/05/24 History mcg (2,000 unit) capsule ibuprofen 200 mg tablet 400 mg PO Q6H PRN Pain 12/20/23 02/05/24 History multivit with minerals-iron 18 1 tablet PO DAILY 02/05/24 02/05/24 History mg-folic ac 400 mcg-vit K 25 mcg tablet (Adults Multivitamin) omeprazole 20 mg capsule,delayed 20 mg PO PRN PRN Heartburn 02/05/24 02/05/24 History release mupirocin 2 % topical ointment 1 applic topical BID #22 grams 02/09/24 Rx Allergies Allergy/AdvReac Type Severity Reaction Status Date / Time No Known Allergies Allergy Verified 02/05/24 08:56 Exam Narrative: 73-year-old male alert pleasant. He is 5 ft 11 200 lb BMI is 29.2. Left knee range of motion is from 10-130 degrees. Mild effusion. Hip range of motion is full without discomfort, negative Stinchfield maneuver. Normal stability. Overall quad strength. 1+ pretibial edema. Absent pedal edema. 2+ dorsalis pedis and posterior artery pulse palpable. Moderate lateral joint line tenderness. Resp: Auscultation: clear to auscultation bilaterally Cardio: Rate: regular rate Rhythm: regular rhythm Assessment and Plan Assessment and plan (1) Primary localized osteoarthritis of both knees: Code(s): M17.0 - Bilateral primary osteoarthritis of knee Status: Acute Assessment and Plan: 73-year-old male who has severe lateral compartment oste
[2024-02-22] VITALS (10 sets, daily range): BP systolic 115–149; BP diastolic 71–91; PULSE 73–87; RESP 10–16; TEMP 36.4–36.9; O2SAT 94–99; BMI 28.7
--- NOTE | ~2024-02-22 | XR_ITS ---
EXAMINATION: [id number] DATE: 02/22/2024 11:29 INDICATION: Postoperative evaluation following left total knee arthroplasty. TECHNIQUE: Anteroposterior and lateral views of the left knee were obtained. COMPARISON: None. FINDINGS: Left total knee arthroplasty without patellar resurfacing appears well seated and in near anatomic al ignment. No fractures identified. Expected postoperative subcutaneous and intra-articular gas. IMPRESSION: 1. Left total knee arthroplasty, negative for postoperative purposes. Reviewed, dictated and finalized at location B.
--- NOTE | 2024-02-22 06:39 | WPDANESEPPF ---
Anes - Initial Pre Proc Eval Procedure: Operation Date: 02/22/24 07:30 Proposed Procedures p Left Total Knee Arthroplasty, Right Knee Cortisone Injection - Steve Dickey MD Date/Time: 02/22/24 06:39 Surgeon: Steve Dickey MD Pre Op Diagnosis: oa bilateral knees Patient Data Age: 73 Gender: M Height: 1.8 m Weight: 94.9 kg Last Vital Signs Temp 36.9 C 02/05/24 09:33 Pulse 83 02/05/24 09:33 Resp 18 02/05/24 09:33 BP 119/80 02/05/24 09:33 Pulse Ox 98 02/05/24 09:33 O2 Del Method Room Air 02/05/24 09:33 Allergies Allergy/AdvReac Type Severity Reaction Status Date / Time No Known Allergies Allergy Verified 02/05/24 08:56 Home Medications Medication Instructions Recorded Confirmed Type rosuvastatin 10 mg tablet (Crestor) 20 mg PO DAILY 10/29/19 02/05/24 History cholecalciferol (vitamin D3) 50 50 mcg PO DAILY 01/28/20 02/05/24 History mcg (2,000 unit) capsule ibuprofen 200 mg tablet 400 mg PO Q6H PRN Pain 12/20/23 02/05/24 History multivit with minerals-iron 18 1 tablet PO DAILY 02/05/24 02/05/24 History mg-folic ac 400 mcg-vit K 25 mcg tablet (Adults Multivitamin) omeprazole 20 mg capsule,delayed 20 mg PO PRN PRN Heartburn 02/05/24 02/05/24 History release mupirocin 2 % topical ointment 1 applic topical BID #22 grams 02/09/24 Rx Patient hx anesthesia problems: none Family hx anesthesia problems: none Results Review: All pre-operative results and documents have been reviewed as part of the pre-operative evaluation. [facility] Past Medical History Medical History Bilateral knee pain BPH (benign prostatic hyperplasia) Degenerative joint disease of knee High cholesterol Left knee DJD Overweight (BMI 25.0-29.9) Right knee DJD Right knee DJD Sleep apnea Surgical History Surgical History History of transurethral resection of prostate Family History Family History Grandparent Carcinoma of colon Mother Family history of diabetes mellitus in first degree relative Other Diabetes mellitus Family history of cardiovascular disease Family history of heart disease in male family member before age 55 Heart disease Social History Social History Smoking status: Never smoker Additional smoking assessment comments: DENIES ANY FORM OF TOBACCO USE Alcohol intake: never Substance use type: does not use Do You Feel Safe in your Home?: Yes Lack of Transportation: No Lack of Food: Never True Current Housing: I Have Housing Concerned About Future Housing: No Difficulty Paying Gas/Electric Bills: No Difficulty Paying for Meds: No Currently Unemployed: No Education: Bachelor's Degree Difficulty w/ Childcare or Family Care: No Living arrangements: with family Occupation/Education: retired Gender identity (if verbalized by the patient): Male Spiritual care concerns: No Anes - Eval Final PreProcedure Day of Procedure 02/22/24 06:39 Patient weight: overweight Heart: regular rate and rhythm Lungs: clear to auscultation Airway: Mallampati scale class II Neurological: alert and oriented Last oral intake: >/= 8 hours ASA classification: II Emergent: no Anesthetic plan: proceed Anesthesia type and monitoring: general ETT and standard monitoring Results Review: All pre-operative results and documents have been reviewed as part of the pre-operative evaluation. Informed Consent: The patient's anesthetic plan and its attendant risks and benefits were discussed with the patient/family/POA. Questions were solicited and answers provided to the satisfaction of the patient/family/POA.
[2024-02-22] MEDS: LACTATED RINGERS 1,000 ML 30 ML IV CONT ×2 (06:40)
--- NOTE | 2024-02-22 06:55 | WPDHPUPDATE1 ---
History and Physical Update Update Date/Time: 02/22/24 06:55 History and Physical has been reviewed, including an updated exam of the patient. There are NO changes in the patient's condition. Risks, benefits, and alternatives have been discussed and questions answered. Patient agrees to proceed with procedure.
[2024-02-22] MEDS: ACETAMINOPHEN 500 MG TABLET 1000 MG PO (07:14)
[2024-02-22] MEDS: TRANEXAMIC ACID 1,000MG/ISO100 1,000 MG/100 ML BAG 200 MG IVPB (07:15)
[2024-02-22] MEDS: VANCOMYCIN 1,500 MG/NS 500 ML BAG 250 MG IVPB (07:15)
[2024-02-22] MEDS: ceFAZolin 2 GM/D5W 50 ML 2 GM/50 ML BAG IVPB ×3 (07:35→23:29)
[2024-02-22] MEDS: LIDOCAINE HCL 1% LOCAL INJ 20 ML VIAL 4 ML INFILTRATE (07:42)
[2024-02-22] MEDS: SODIUM CHLORIDE 0.9% IV 37.7 ML, MORPHINE SULFATE INJ (*CRX) 2 MG, ROPivacaine HCL 1% 2... INFILTRATE (08:04)
[2024-02-22] MEDS: ceFAZolin SODIUM 1 GM VIAL 3 GM (08:04)
[2024-02-22] MEDS: GENTAMICIN BONE CEMENT REFOBACIN 1 EACH TOPICAL (10:12)
[2024-02-22] MEDS: ceFAZolin SODIUM 1 GM VIAL 2 GM IV PUSH (10:21)
[2024-02-22] MEDS: KETOROLAC 15 MG/ML VIAL (*BKC) IV PUSH ×3 (10:22→23:30)
[2024-02-22] MEDS: TRANEXAMIC ACID 1,000 MG/10 ML AMPUL 1000 MG IV PUSH (10:23)
--- NOTE | 2024-02-22 11:27 | W.PM.PROC2 ---
Procedure Note - Detailed Date of Procedure 02/22/24 Pre-op Diagnosis oa bilateral knees Post-op Diagnosis Same Procedure Performed Cortisone injection right knee, left total knee arthroplasty Surgeon Steve Dickey MD [employer] [place] Anesthesia General Description of Procedure Patient brought to the operating room and general anesthesia was administered. The right knee was prepped with ChloraPrep and 80 mg of Depo-Medrol and 4 cc 1% lidocaine were injected into the right knee through a lateral parapatellar approach without difficulty. The left knee was prepped draped usual fashion. He received 2 g Ancef 1 g TXA weight based vancomycin preoperatively. Under anesthesia there was a 10-12 degree flexion contracture noted. Limb was exsanguinated and tourniquet elevated to 250 mmHg. His blood pressure went up a little bit so we increased this to 275. A 7 in longitudinal midline incision was used and a standard parapatellar arthrotomy utilized. Partial infrapatellar fat pad excision carried out. Quadriceps synovectomy performed. The cartilage on the patella was intact with mild central chondromalacia. A minor lateral facetectomy was performed. I felt it was most suitable for non resurfacing. A guide norman was inserted down the femoral canal after aspiration of canal contents using the 5 degree valgus cutting bushing 9 mm of bone removed the distal femur. Because of wear laterally this removed about 5 mm on the lateral side. Next the tibial plateau was cut. We made a skim cut perpendicular to the axis of the tibia which was just under the subchondral bone posteriorly on the medial side and as well as the posterolateral tibial defect laterally. Meniscus remnants were excised the PCL recessed. There was rather marked bone wear in the posterior aspect of lateral femoral condyle with longitudinal grooving present. At 90? the medial side accepted a 6 mm spacer block lateral side 12 mm. The distal femoral sizing guide was applied to the distal femur set at 6? of external rotation which matched Whitesides line. Posterior referencing pinholes were placed. Femur was cut using the size 70 vanguard AP cutting block. The trial was about a mm too wide. At 90? we inserted the 10 CR insert which went in without difficulty but was tight both medially and laterally. This was going to be too tight to accept a 10 insert properly. Therefore the tibia was recut removing an additional 2 mm of bone from the tibial plateau. We then sized the tibia after confirming a perfectly flat cut sizing it to a size 75 placed at proper rotation this was punched. The size 10 insert was slightly looser than average at 90? and the size 11 was a little bit tighter than average at 90?. The medial lateral compartments opened up about 2 mm to valgus and varus stress at 90?. With the arthrotomy closed there was appropriate AP stability. We lacked quite a bit of extension however with no play medially or laterally. The size 67.5 AP cutting blocks applied the distal femur in the anterior cuts revisited. 2 mm of bone removed the distal femur and chamfer cuts were revised with the 67.5 cutting block in the 67.5 fit very nicely. Posterior femoral osteophytes removed this time. Posterior capsule release was performed centrally. On trialing we still lacked 5? of extension with the 10 insert with less than a mm medial and lateral opening. Therefore an additional mm of bone was removed the distal femur. Complete posterior capsular release was carried out from the distal femur from the origin tendon the medial gastroc to the origin tendon of the lateral gastroc and we trialed again and this time the knee came out to full extension. There was 2 mm of lateral opening 2-3 mm of medial opening and appropriate stability the arthrotomy closed at 90? with the 10 insert. The 11 insert was trialed and also had a negative bounce I thought it lacked about 1 degree of extension and seemed a little
[2024-02-22] MEDS: fentaNYL CITRATE INJ (*CRX) 100 MCG/2 ML VIAL 25 MCG IV PUSH ×2 (11:45→11:50)
--- NOTE | 2024-02-22 12:53 | ADMGEN ---
This patient, Annel Jenkins Jr., was admitted to Medical Room 341-01. Patient/family oriented to hospital policies and general routines including ID bracelet, bed and alarms, visiting hours, pain management, procedures, bathroom and other care routines, personal items, smoking policy, room service/diet, and visiting hours. Information on how to activate the Rapid Response Team has been discussed. Patient/Family are encouraged to report perceived risks to care and to ask questions if they do not understand what they are told or what they should do.
[2024-02-22] MEDS: SODIUM CHLORIDE 0.9% IV 1,000 ML 125 ML IV CONT (13:14)
[2024-02-22] MEDS: oxyCODONE HCL (*CRX) 5 MG TAB IR PO ×3 (13:15→21:13)
[2024-02-22] MEDS: ACETAMINOPHEN 325 MG TABLET 650 MG PO ×3 (13:15→21:14)
--- NOTE | 2024-02-22 14:51 | PM.IMCN ---
Assessment and Plan Assessment and plan (1) Primary localized osteoarthritis of both knees: Code(s): M17.0 - Bilateral primary osteoarthritis of knee Status: Acute Assessment and Plan: Underwent a total left knee arthroplasty and a cortisone injection of the right knee with Noble PEARSON on 02/21. - ambulate with assistance and up to chair - apply gel pads - use IS - neurovasc checks - see order for intervals - SCDs and TEDs - resume diet - pain management - zofran PRN for nausea - monitor labs in AM - CBC and BMP - bowel regimen: docusate/senna, polyethylene glycol - maintenance fluids: NS 125 mL/hr x8 hrs - prophylactic abx - PT/OT Plan Underwent a total left knee arthroplasty and a cortisone injection of the right knee with Noble PEARSON on 02/21. Reviewed home medications: atorvastatin continued for HLD, all else held. Plan for PT/OT. Monitor VS and pain. Diet: regular GI Prophylaxis: famotidine p.o. DVT Prophylaxis: SCDs, TEDs Lines: peripheral Code Status: full code HPI Date of Consult Consult date: 02/22/24 Requesting Physician: Steve Dickey MD Primary Care Provider: Marcell Valadez, Consult Narrative Reason for consult: Medical Managment Narrative: 73 y/o M presents here for surgical management of osteoarthritis of the knees with PMH of BPH, high cholesterol, and sleep apnea. The patient presents here for surgical management of his osteoarthritis of the bilateral knees. Has been having pain in both knees for the past 6 years which has progressively worsened despite conservative treatment. Has received cortisone injections and takes ibuprofen regularly. Last cortisone injection in September of 2023 which only provided temporary relief. Elected to move forward with surgical management of his left knee due to interference with his ADLs and wished to remain active. Will receive a cortisone injection in his right knee during the procedure. Postoperatively the patient does not have any complaints. Denying postoperative nausea, vomiting, numbness, or tingling. No recent changes to his medications or new medications. Does not use a CPAP machine at night for sleep apnea. Preop workup: 98.4? F, HR 83, R 18, 119/80, and 98% on RA. Preop VS: No leukocytosis, no anemia, creatinine 1.1 and GFR >60. XR of the left knee demonstrated [id number] medial compartment osteoarthritis in the right knee showed multiple ossified loose bodies posterior intercondylar notch in posterior soft tissues of the knee and a Malone cyst. Review of Systems Review of Systems: All systems reviewed & are unremarkable except as noted in HPI and below PMFSH Past Medical History Medical History Actinic keratosis Bilateral knee pain BPH (benign prostatic hyperplasia) Degenerative joint disease of knee GERD (gastroesophageal reflux disease) Hyperlipidemia Left knee DJD Overweight (BMI 25.0-29.9) Right knee DJD Sleep apnea Squamous cell carcinoma of scalp 2021, s/p MOHS Surgical History Surgical History History of cataract extraction History of Mohs micrographic surgery for squamous cell carcinoma in situ (SCCIS) of skin History of transurethral resection of prostate (2022) Family History Family History Grandparent Carcinoma of colon Mother Family history of diabetes mellitus in first degree relative Other Diabetes mellitus Family history of cardiovascular disease Family history of heart disease in male family member before age 55 Heart disease Social History Social History Smoking status: Never smoker Additional smoking assessment comments: DENIES ANY FORM OF TOBACCO USE Alcohol intake: never Substance use: never Substance use type: does not use Do You Feel Saf
[2024-02-22] MEDS: SENNA/DOCUSATE SODIUM TABLET 2 TAB PO (17:26)
[2024-02-22] MEDS: VANCOMYCIN 1,000 MG/NS 250 ML 1,000 MG/250 ML BAG 250 MG IVPB (18:35)
[2024-02-22] MEDS: FAMOTIDINE 20 MG TABLET PO (21:14)
[2024-02-22] MEDS: CEPHALEXIN 500 MG CAPSULE PO (23:29)
[2024-02-23] MEDS: ACETAMINOPHEN 325 MG TABLET 650 MG PO ×4 (00:48→12:18)
[2024-02-23] MEDS: oxyCODONE HCL (*CRX) 5 MG TAB IR PO ×4 (00:48→12:18)
[2024-02-23 02:15] VITALS: BP 115/62; PULSE 66; RESP 20; TEMP 36.6; O2SAT 98
[2024-02-23 04:30] LABS: Basophils Percent Auto 0.2 % (0.2-1.2); Hematocrit 37.9 % (42.0-52.0); Hemoglobin 12.6 g/dL (14.0-18.0); Immature Granulocyte Absolute 0.07 K/mm3 (0.00-0.031); Immature Granulocyte Percent A 0.5 % (0-0.5); Lymphocytes Absolute Auto 1.39 K/mm3 (0.9-3.2); Lymphocytes Percent Auto 10.5 % (18.3-44.2); Mean Corpuscular HGB Conc 33.2 g/dl (32-36); Mean Corpuscular Hemoglobin 29.6 pg (26-34); Mean Corpuscular Volume 89.2 fl (80-100); Mean Platelet Volume 10.7 fl (7.4-10.4); Monocytes Absolute Auto 1.2 K/mm3 (0.1-0.6); Monocytes Percent Auto 8.8 % (2.6-8.5); Neutrophils Absolute Auto 10.6 K/mm3 (1.3-6.7); Platelet Count Result 168 k/mm3 (150-375); Red Blood Count 4.25 M/mm3 (4.6-6.20); Red Cell Distribution Width 14.2 % (11.5-14.5); White Blood Count 13.2 K/mm3 (4.5-10.0)
[2024-02-23 04:45] LABS: Potassium 4.5 mmol/L (3.4-5.0)
[2024-02-23 04:48] LABS: Anion Gap 7 mmol/L (4-12); Blood Urea Nitrogen 20 mg/dL (9-20); Calcium 8.7 mg/dL (8.4-10.2); Carbon Dioxide 21 mmol/L (22-30); Chloride 109 mmol/L (98-107); Estimated CRCL calculation 60 ml/min; Estimated Glomerular Filt Rate > 60; Glucose 132 mg/dL (65-110); Sodium 137 mmol/L (137-145)
[2024-02-23] MEDS: CEPHALEXIN 500 MG CAPSULE PO ×2 (06:32→12:18)
[2024-02-23] MEDS: VANCOMYCIN 1,000 MG/NS 250 ML 1,000 MG/250 ML BAG 250 MG IVPB (06:32)
[2024-02-23 07:26] VITALS: BP 127/84; PULSE 68; RESP 20; TEMP 36.2; O2SAT 99
[2024-02-23] MEDS: ceFAZolin 2 GM/D5W 50 ML 2 GM/50 ML BAG IVPB (07:45)
--- NOTE | 2024-02-23 07:49 | PM.PNORT ---
Subjective Subjective Date/Time Seen: 02/23/24 07:49 Interval history: Postop day 1 patient is alert. He is afebrile vital signs are stable. Neurovascularly is intact. Is able do a straight leg raise. Dressing is dry and intact. Patient was up walking to the restroom in in his room yesterday. Overall he is doing very well. The plan will be to have the patient work with Physical therapy this morning and again this afternoon I did discharge him home later this afternoon. Morning labs are noted. Objective Data Vital Signs Vital Signs: Vital Signs - 24 hr 02/22/24 11:33 02/22/24 11:45 02/22/24 12:00 Temperature 97.5 F L Pulse Rate 77 75 76 Respiratory Rate 16 10 L 14 Blood Pressure 130/83 146/89 H 135/87 Pulse Oximetry 97 99 98 Oxygen Delivery Simple Face Mask Simple Face Mask Nasal Cannula Oxygen Flow Rate 8 8 2 02/22/24 12:15 02/22/24 12:27 02/22/24 13:00 Temperature 98.3 F Pulse Rate 77 76 75 Respiratory Rate 16 12 16 Blood Pressure 140/82 143/88 H 144/91 H Pulse Oximetry 98 96 94 Oxygen Delivery Nasal Cannula Nasal Cannula Oxygen Flow Rate 2 2 02/22/24 13:15 02/22/24 14:15 02/22/24 15:15 Temperature 98 F 97.6 F Pulse Rate 73 76 Respiratory Rate 16 16 Blood Pressure 149/87 H 135/90 Pulse Oximetry 95 97 Oxygen Delivery Room Air Oxygen Flow Rate 02/22/24 20:00 02/22/24 22:15 02/23/24 02:15 Temperature 97.6 F 97.8 F Pulse Rate 74 66 Respiratory Rate 16 20 Blood Pressure 137/71 115/62 Pulse Oximetry 95 98 Oxygen Delivery Room Air Oxygen Flow Rate 02/23/24 07:26 Temperature 97.1 F L Pulse Rate 68 Respiratory Rate 20 Blood Pressure 127/84 Pulse Oximetry 99 Oxygen Delivery Oxygen Flow Rate Intake/Output Intake/Output: Intake & Output 02/20/24 02/21/24 02/22/24 02/23/24 23:59 23:59 23:59 23:59 Intake Total 1340 450 Output Total 1000 Balance 1340 -550 Meds/Results Medications: Active Medications Generic Name Dose Route Start Last Admin Trade Name Freq PRN Reason Stop Dose Admin Acetaminophen 650 mg 02/22/24 13:00 02/23/24 06:32 Acetaminophen 325 Mg Tablet PO 650 mg Q4HR RAQUEL Administration Apixaban 2.5 mg 02/23/24 09:00 Apixaban 2.5 Mg Tablet PO 03/05/24 21:01 Q12HR RAQUEL Celecoxib 200 mg 02/23/24 08:00 Celecoxib 200 Mg Capsule PO DAILY@0800 [facility] Cephalexin HCl 500 mg 02/23/24 00:00 02/23/24 06:32 Cephalexin 500 Mg Capsule PO 500 mg Q6HR RAQUEL Administration Diphenhydramine HCl 25 mg 02/22/24 12:30 Diphenhydramine Hcl Inj 50 Mg/Ml Vial IV PUSH Q6H PRN Itching Famotidine 20 mg 02/22/24 21:00 02/22/24 21:14 Famotidine 20 Mg Tablet PO 20 mg Q12HR RAQUEL Administration Cefazolin Sodium 2 gm in 50 mls @ 100 mls/hr 02/22/24 16:00 02/23/24 07:45 Ancef 2 Gm/D5w 50 Ml IVPB 02/23/24 08:29 100 mls/hr Q8H RAQUEL Administration Vancomycin HCl 1,000 mg in 250 mls @ 250 mls/hr 02/22/24 19:00 02/23/24 06:32 Vancomycin 1,000 Mg/Ns 250 Ml IVPB 02/23/24 07:59 250 mls/hr Q12H RAQUEL Administration Morphine Sulfate 2 mg 02/22/24 12:30 Morphine Sulfate (*Crx) 2 Mg/Ml Inj IV PUSH Q2H PRN Breakthrough Pain Rated 4-6 or NPO Naloxone HCl 0.1 mg 02/22/24 12:30 Naloxone Hcl 0.4 Mg/Ml Vial IV PUSH Q2M PRN Opiate Reversal Ondansetron HCl 4 mg 02/22/24 12:30 Ondansetron Inj 4 Mg/2 Ml Vial IV PUSH Q4H PRN Nausea And Vomiting Oxycodone HCl 5 mg 02/22/24 13:00 02/23/24 06:32 Oxycodone Hcl (*Crx) 5 Mg Tab Ir PO 5 mg Q4H RAQUEL Administration Oxycodone HCl 5 mg 02/22/24 12:30 Oxycodone Hcl (*Crx) 5 Mg Tab Ir PO Q4H PRN Pain Rated 7-10 Polyethylene Glycol 17 gm 02/23/24 09:00 Polyethylene Glycol 3350 17 Gm Powd.Pack PO QAM RAQUEL Rosuvastatin Calcium 20 mg 02/23/24 09:00 Rosuvastatin 20 Mg Tablet PO DAILY RAQUEL Senna/Docusate Sodium 2 tab 02/22/24 17:00 02/22/24 17:26 Senna/Docusat
--- NOTE | 2024-02-23 07:53 | PM.DS ---
DS: Admitting Diagnosis Discharge Date 02/22 Admitting Diagnosis Left knee DJD DS: Discharge Diagnosis Discharge Diagnosis (1) Primary localized osteoarthritis of both knees: Code(s): M17.0 - Bilateral primary osteoarthritis of knee Status: Acute DS: Summary Hospital Course Hospital Course: 73-year-old male who underwent left total knee arthroplasty as well as cortisone injection into the right knee on 02/21. Underwent the procedure without complications. Postoperatively he has been afebrile vital signs are stable. He is weight-bearing as tolerated. He was up walking the day of surgery in his room. He is on Eliquis for DVT prophylaxis. He is on oxycodone 5 mg as well as Tylenol every 4 hours for pain control. He is on Celebrex 200 mg daily as well. He will be discharged home on 02/22. Postop day 1 patient was alert comfortable. Dressing was dry and intact. Patient will also be going home on a 10 day course of Keflex due to his nasal swab which grew ALISHA. He also go home on Senokot MiraLax. He on his outpatient therapy starting next Monday. Patient was advised to keep leg elevated home prevent swelling but do his exercises on an hourly basis. The any questions or concerns he is to call the office. Time Spent with Patient Time attestation: Total time spent providing and/or coordinating discharge services: DS: Data Data Completed and Pending Labs on day of discharge: Labs from last 24 hours 02/23/24 03:56 WBC 13.2 H RBC 4.25 L Hgb 12.6 L D Hct 37.9 L MCV 89.2 MCH 29.6 MCHC 33.2 RDW 14.2 Plt Count 168 MPV 10.7 H Immature Gran % (Auto) 0.5 Neut % (Auto) 80.0 H Lymph % (Auto) 10.5 L [place] % (Auto) 8.8 H Eos % (Auto) 0.0 Baso % (Auto) 0.2 Lymph # (Auto) 1.39 [place] # (Auto) 1.2 H Eos # (Auto) 0.0 Baso # (Auto) 0.0 Abs Immat Gran (auto) 0.07 H Absolute Neuts (auto) 10.6 H Absolute Nucleated RBC 0.000 Nucleated RBC % 0.0 Sodium 137 Potassium 4.5 Chloride 109 H Carbon Dioxide 21 L Anion Gap 7 BUN 20 Creatinine 1.00 Estim Creat Clear Calc 60 Estimated GFR > 60 Glucose 132 H Calcium 8.7 Discharge Plan Discharge Patient Disposition: Home, Self-Care Discharge Instructions: SUSAN TINAJERO M.D [facility] [address] [address] [address] [place] [address] POST-OPERATIVE DISCHARGE INSTRUCTIONS TOTAL KNEE ARTHROPLASTY 1. When resting, do not rest in the chair.When resting, lie on your back, with back flat on the couch or bed, with leg elevated above heart to minimize swelling. You may put a pillow under your head. . Significant swelling could indicate a blood clot and if this occurs call the office (or go to the ER) to have a venous ultrasound. Therefore, do not rest in a chair. 2. At least five times a day spend several minutes stretching your knee into flexion while sitting in the chair and also stretching your knee out straight The abilities to bend your knee fully and straighten your knee fully are two most important knee functions to focus on during your recovery. 3. It is ok to sit in chair to eat, use the toilet and receive a guest and to do your stretching exercises, but, sitting in a chair will cause your leg to swell. Therefore, avoid additional time sitting in the chair. and don't rest in the chair. 4. Wound Care: Nursing will give you an additional Mepilex dressing at the time of discharge. Patient to remove the dressing and apply a new Mepilex dressing at home 7 days after surgery and leave the dressing on until seen in office. It is normal to see a small amount of blood on the silver pad of the Mepilex dressing. Its designed to hold small spots of blood. However, if the blood reaches the edge of the pad up to the boarder of the clear membrane that surrounds the pad, the pad is saturated and the Mepilex dressing should be removed and a new Mepilex dressing should be applied. 5. May shower with a Mepi
[2024-02-23 08:03] VITALS: O2SAT 97
[2024-02-23] MEDS: SENNA/DOCUSATE SODIUM TABLET 2 TAB PO (08:16)
[2024-02-23] MEDS: CELECOXIB 200 MG CAPSULE PO (08:16)
[2024-02-23] MEDS: APIXABAN 2.5 MG TABLET PO (08:16)
[2024-02-23] MEDS: FAMOTIDINE 20 MG TABLET PO (08:16)
[2024-02-23] MEDS: polyethylene glycoL 3350 17 GM POWD.PACK PO (08:16)
[2024-02-23] MEDS: ROSUVASTATIN 20 MG TABLET PO (08:16)
[2024-02-23 10:15] VITALS: BP 135/76; PULSE 61; RESP 14; TEMP 36.7; O2SAT 98
--- NOTE | 2024-02-23 14:45 | WPDANESPN ---
Anes - Prog Note Post-Op Date/Time: 02/23/24 14:45 Cardiovascular status: normal Respiratory status: normal Airway patency: baseline Mental status: baseline Post-Op hydration status: normal Vital Signs: Last Vital Signs Temp 36.7 C 02/23/24 10:15 Pulse 61 02/23/24 10:15 Resp 14 02/23/24 10:15 BP 135/76 02/23/24 10:15 Pulse Ox 98 02/23/24 10:15 O2 Del Method Room Air 02/23/24 08:03 O2 Flow Rate 2 02/22/24 12:27 Pain Score (VAS): 10/07 I/O: Intake & Output 02/22/24 02/23/24 02/23/24 23:59 07:59 15:59 Intake Total 540 450 720 Output Total 1000 Balance 540 -550 720 Laboratory Tests 02/23/24 03:56 02/23/24 03:56 02/23/24 03:56 WBC 13.2 H RBC 4.25 L Hgb 12.6 L D Hct 37.9 L MCV 89.2 MCH 29.6 MCHC 33.2 RDW 14.2 Plt Count 168 MPV 10.7 H Immature Gran % (Auto) 0.5 Neut % (Auto) 80.0 H Lymph % (Auto) 10.5 L [place] % (Auto) 8.8 H Eos % (Auto) 0.0 Baso % (Auto) 0.2 Lymph # (Auto) 1.39 [place] # (Auto) 1.2 H Eos # (Auto) 0.0 Baso # (Auto) 0.0 Abs Immat Gran (auto) 0.07 H Absolute Neuts (auto) 10.6 H Absolute Nucleated RBC 0.000 Nucleated RBC % 0.0 Sodium 137 Potassium 4.5 Chloride 109 H Carbon Dioxide 21 L Anion Gap 7 BUN 20 Creatinine 1.00 Estim Creat Clear Calc 60 Estimated GFR > 60 Glucose 132 H Calcium 8.7 Post-procedural complaints: none Patient Feedback: Patient satisfied with anesthetic care.
== END 2024-02-23 15:00 | disposition home or self-care (01) ==
LOC: ANHSURGERY 05:58 → ANH3MED 12:34
PROVIDERS: Physician Assistant Surgical; PCP Internal Medicine; Visit Provider Orthopaedic Surgery
PROC: (CPT 27447; principal; 2024-02-22 07:30)
DX: M17.0 Bilateral primary osteoarthritis of knee (principal); M94.261 Chondromalacia, right knee; K21.9 Gastro-esophageal reflux disease without esophagitis; E78.00 Pure hypercholesterolemia, unspecified; N40.0 Benign prostatic hyperplasia without lower urinary tract symptoms; G47.30 Sleep apnea, unspecified; L57.0 Actinic keratosis; Z79.1 Long term (current) use of non-steroidal anti-inflammatories (NSAID); Z98.890 Other specified postprocedural states; Z85.820 Personal history of malignant melanoma of skin; Z80.0 Family history of malignant neoplasm of digestive organs; Z82.49 Family history of ischemic heart disease and other diseases of the circulatory system
CPT/HCPCS: 27447; 20610; 36415; 73560; 80048; 80307; 82040; 83036; 85025; 86850; 86900; 86901; 87081; 87147; 87181; 93005; 97110; 97116; 97161; 97165; 97530; 97535; A9270; C1713; C1776; J0171; J0690; J1010; J1100; J1170; J1885; J2250; J2270; J2405; J2704; J2795; J3010; J3370; J7030; J7120

== ENCOUNTER 2024-05-10 08:30 | Outpatient (RCR) | payer MEDICARE, SELFPAY ==
--- NOTE | 2024-02-26 16:06 | OPREHPOC ---
Outpatient Therapy Plan of Care This is a Multidisciplinary Plan of Care that may contain components documented by all disciplines (PT, OT, and ST.) PT Problem 1 PT Problem #1 Knowledge Deficit PT Goal 1 Goal 1. Patient will perform independent HEP Target Visit 3 PT Problem 2 PT Problem #2 Pain PT Goal 1 Goal 1. Patient will report pain 3/10 highest with normal activities Target Visit 10 PT Problem 3 PT Problem #3 Impaired Range of Motion PT Goal 1 Goal 1. Improve knee extension to 0 for gait 2. Improve knee flexion to 120 for stair navigation PT Problem 4 PT Problem #4 Impaired Functional Mobil PT Goal 1 Goal 1. Patient able to navigate stairs with reciprocal pattern Target Visit 10 PT Problem 5 PT Problem #5 Impaired Gait PT Goal 1 Goal 1. Patient will ambulate at least 300 feet on the 2 minute walk test without device Target Visit 10
--- NOTE | 2024-02-26 16:06 | PTOPEVAL1 ---
Assessment and note entered by Eboni Hernandez DPT Evaluation Information Assessment Status Evaluation Diagnosis m17.12, z96.652 ICD-10 Condition Codes (PT) Pain in left knee M25.562,Z47.89,Z47.1 Subjective Information Pt is s/p L TKA. Highest pain in the past few days 4/10 and lowest 0/10. Currently ambulating with a walker. Dressed and bathed with some help today. Pt has not tried cooking or cleaning recently. Has stairs at home that he does not have to use, 1 and 1 to get into the house. Pt is not yet driving . Normally does yardwork, has not been able to do that yet. No walker use prior to surgery and was previously active and independent with all activities. Patient goal: get use of my knee back Returns to MD on 03/06/24. Reported Pain Level Pain Score Mild Pain: [place] Malone Assessment PT Clinical Summary The patient is presenting to skilled therapy s/p L TKA on 02/22/24. He presents with decreased range of motion (+4-95), decreased LE strength, and gait , balance, and stair impairments which are contributing to his current walker use and difficulty performing typical activities independently including dressing and bathing. He will benefit from therapy to address her impairments in order to reduce pain and return to full function. LEFS= 87.5% dysfunction. Plan of Care Interventions Electrical Stimulation,Gait Training,Hot Pack/Cold Pack,Manual Therapy,Neuro Re-education,Patient/ Caregiver Education,Therapeutic Activities, Therapeutic Exercise PT Services Indicated Yes Treatment Frequency and 2 times a week for 10 visits Duration These treatments will address the objective and functional deficits as defined above. The patient will be advanced safely and appropriately in order for the patient to progress towards his/her prior level of function. Additional exercises will be introduced and as well as a comprehensive home exercise program upon discharge, if needed, ?to ensure carryover of functional gains achieved in the clinic. This treatment plan has been reviewed and agreement upon by the patient.
--- NOTE | 2024-03-29 09:10 | OPREHPOC ---
Outpatient Therapy Plan of Care This is a Multidisciplinary Plan of Care that may contain components documented by all disciplines (PT, OT, and ST.) PT Problem 1 PT Problem #1 Knowledge Deficit PT Goal 1 Goal 1. Patient will perform independent HEP Target Visit 3 Progress Met PT Problem 2 PT Problem #2 Pain PT Goal 1 Goal 1. Patient will report pain 3/10 highest with normal activities Target Visit 10 Progress Met Comment Greatly improved. PT Problem 3 PT Problem #3 Impaired Range of Motion PT Goal 1 Goal 1. Improve knee extension to 0 for gait 2. Improve knee flexion to 120 for stair navigation Target Visit 16 Progress Partially Met Comment Still lacking some terminal knee extension. Hit flexion goal PT Problem 4 PT Problem #4 Impaired Functional Mobil PT Goal 1 Goal 1. Patient able to navigate stairs with reciprocal pattern Target Visit 10 Progress Met PT Problem 5 PT Problem #5 Impaired Gait PT Goal 1 Goal 1. Patient will ambulate at least 300 feet on the 2 minute walk test without device Target Visit 10 Progress Met
--- NOTE | 2024-03-29 09:10 | PTOPPROG ---
Assessment and note entered by Guerrero Galvez, PT Evaluation Information Assessment Status Progress Diagnosis m17.12, z96.652 ICD-10 Condition Codes (PT) Pain in left knee M25.562,Z47.89,Z47.1 Subjective Information Patient reports that overall he is doing very well . He is very happy with how he has progressed. Feels objectively he is doing well but would like to get a little stronger. The only issue he is having is sleeping with his leg straight out. Mild aching on both sides of the knee. No concerns at this time. Assessment PT Clinical Summary Patient has made excellent progress to this point in therapy. Knee flexion is beyond goals, but he still lacks some terminal knee extension which effects gait to an extent on terminal stance. Continues to show some minor strength deficits and trouble with eccentric control and this will be the focus moving forward. Plan of Care Interventions Electrical Stimulation,Gait Training,Hot Pack/Cold Pack,Manual Therapy,Neuro Re-education,Patient/ Caregiver Education,Therapeutic Activities, Therapeutic Exercise PT Services Indicated Yes Treatment Frequency and 1x/week for 6 visits Duration These treatments will address the objective and functional deficits as defined above. The patient will be advanced safely and appropriately in order for the patient to progress towards his/her prior level of function. Additional exercises will be introduced and as well as a comprehensive home exercise program upon discharge, if needed, ?to ensure carryover of functional gains achieved in the clinic. This treatment plan has been reviewed and agreement upon by the patient.
--- NOTE | 2024-04-17 09:50 | PCPTNOTE ---
Patient was canceled 04/09/24 due to therapist out with illness.
--- NOTE | 2024-04-23 09:13 | PCPTNOTE ---
Patient had to cancel appoinment this date due to having a board meeting.
--- NOTE | 2024-05-10 09:13 | OPREHPOC ---
Outpatient Therapy Plan of Care This is a Multidisciplinary Plan of Care that may contain components documented by all disciplines (PT, OT, and ST.) PT Problem 1 PT Problem #1 Knowledge Deficit PT Goal 1 Goal / Goal Update 1. Patient will perform independent HEP Target Visit 3 Progress Met PT Problem 2 PT Problem #2 Pain PT Goal 1 Goal / Goal Update 1. Patient will report pain 3/10 highest with normal activities Target Visit 10 Progress Met PT Problem 3 PT Problem #3 Impaired Range of Motion PT Goal 1 Goal / Goal Update 1. Improve knee extension to 0 for gait 2. Improve knee flexion to 120 for stair navigation Target Visit 16 Progress Met PT Problem 4 PT Problem #4 Impaired Functional Mobil PT Goal 1 Goal / Goal Update 1. Patient able to navigate stairs with reciprocal pattern Target Visit 10 Progress Met PT Problem 5 PT Problem #5 Impaired Gait PT Goal 1 Goal / Goal Update 1. Patient will ambulate at least 300 feet on the 2 minute walk test without device Target Visit 10 Progress Met
--- NOTE | 2024-05-10 09:13 | PTOPDC ---
Assessment and note entered by Guerrero Galvez, PT Evaluation Information Assessment Status Discharge Diagnosis m17.12, z96.652 ICD-10 Condition Codes (PT) Pain in left knee M25.562,Z47.89,Z47.1 Subjective Information Patient reports that overall his left knee is doing really well. He has been having some trouble with his right knee and is planning TKA in August of 2024. No concerns at this time for discharge. Reported Pain Level Pain Score 1: Self Report Assessment PT Clinical Summary Patient met all goals for therapy and is suitable for discharge to [facility] at this time. 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 Plan of Care PT Services Indicated D/C to HEP
== END 2024-05-10 13:45 | disposition home or self-care (01) ==
LOC: ANHGOSHPT 08:30
PROVIDERS: PCP Internal Medicine; Visit Provider Orthopaedic Surgery
DX: Z47.1 Aftercare following joint replacement surgery (principal); M17.12 Unilateral primary osteoarthritis, left knee; Z96.652 Presence of left artificial knee joint
CPT/HCPCS: 97014; 97110; 97140; 97161; 97530; G0283

== ENCOUNTER 2024-08-30 07:31 | Outpatient (CLI) | payer MEDICARE, SELFPAY ==
[2024-08-30 10:18] LABS: Urine Cotinine NEGATIVE
[2024-08-30 12:25] LABS: Hemoglobin A1C 5.9 % (<5.7)
== END 2024-08-30 07:32 | disposition home or self-care (01) ==
LOC: ANHSURGERY 07:35
PROVIDERS: PCP Internal Medicine; Visit Provider Orthopaedic Surgery
DX: Z01.818 Encounter for other preprocedural examination (principal); M17.11 Unilateral primary osteoarthritis, right knee
CPT/HCPCS: 80307; 83036; 87081; 87181

== ENCOUNTER 2024-09-11 11:10 | Outpatient (CLI) | payer MEDICARE, SELFPAY ==
--- NOTE | 2024-09-11 | ECG_ITS ---
Test Date: 2024-09-11 11:37:23 Measurements Intervals [place] Rate: 60 P: 53 AR: 180 QRS: -48 QRSD: 105 T: 56 QT: 446 QTc: 446 Interpretive Statements SINUS RHYTHM INCOMPLETE RIGHT BUNDLE BRANCH BLOCK [90+ ms QRS DURATION, TERMINAL R IN V1/V2, 40+ ms S IN I/aVL/V4/V5/V6] LEFT ANTERIOR FASCICULAR BLOCK [QRS AXIS <= -45, QR IN I, RS IN II] Compared to ECG 02/05/2024 09:56:28 NO SIGNIFICANT CHANGES Electronically Signed On 09-11-2024 14:35:30 ACCOUNT MANAGER B2B by Fady Cook M.D.
== END 2024-09-11 11:11 | disposition home or self-care (01) ==
PROVIDERS: PCP Internal Medicine; Visit Provider Internal Medicine
DX: Z01.818 Encounter for other preprocedural examination (principal); I45.10 Unspecified right bundle-branch block; I44.4 Left anterior fascicular block
CPT/HCPCS: 93005

== ENCOUNTER 2024-09-19 01:11 | Day surgery (SDC) | payer MEDICARE, SELFPAY ==
[2024-08-30 08:05] VITALS: BP 122/76; PULSE 69; RESP 16; TEMP 36.7; O2SAT 97
--- NOTE | 2024-08-30 08:20 | PC.NURSE ---
Report to the Outpatient Waiting Room, entrance under the green pavilion located off [facility], at time __6:00AM____ on date ___09/19/24____. Planned Procedure Time: ___7:30AM .? Time changes happen often and if your time is changed the preop area will call you the afternoon before. - You and your visitor will be asked to self-screen and do not enter if you have any COVID symptoms. Please call surgeon if you need to reschedule. - A mask is optional within the hospital at this time. Patients may have clear liquids (water, carbonated beverages, clear teas, apple juice) until 3 hours prior to surgery with a maximum of 20 ounces. - No food from midnight until time of surgery and no smoking. This includes no chewing gum, candy or mints. Take only the following medications with a SIP of water on the morning of surgery: NONE DO NOT STOP ANY OF YOUR OTHER PRESCRIPTION MEDICATIONS PRIOR TO SURGERY EXCEPT THE FOLLOWING Medications to discontinue per physician ___HOLD ALL VITAMINS/SUPPLEMENTS 3 DAYS PRE-OP PER ANESTHESIA Date to take last dose 09/15/24 Please no make-up, nail belarusian, hairspray, perfume, deodorant, or body powder the day of surgery.? No jewelry (including any body piercings) or valuables the day of surgery, leave them at home.? Please take a shower or bath the night before, or the morning of, surgery with an antibacterial soap.? Wear comfortable, loose fitting clothing.? Children are encouraged to wear pajamas. - Jewelry must be removed prior to entering the operating room.? Rings and piercings that are not removed may be cut off. - The hospital will not accept responsibility for valuables.? - Please leave all valuables, including medications, at home the day of surgery. If you are going home after surgery, a licensed charter coach driver must drive you home.? - NO public transportation without another adult if you receive anesthesia. - We recommend that an adult stay with you for 24 hours following discharge. - We also recommend that you do not drive, make important decision, drink alcoholic beverages, or take any drugs that were not prescribed by your health care provider for at least 24 hours after your discharge time. Follow any additional instructions given to you from your surgeon. HIBICLENS SHOWER PER DR TINAJERO. Telephone instructions given to ____PATIENT and asked if any additional questions and then verbalized understanding. Patient advised to call surgeon office or pre surgery nurse liaison [phone] if any additional questions.
--- NOTE | 2024-09-18 08:15 | PM.IMHP ---
H&P: HPI History of Present Illness Date/Time: 09/18/24 08:15 Chief Complaint: Right knee DJD Narrative: 73-year-old male patient doctor had this for presents today for a right total knee arthroplasty. He underwent left total knee arthroplasty in January of last year. He had uneventful recovery. Overall patient feels he has recovered well from his left total knee is ready proceed with the right. He has severe medial compartment osteoarthritis in the right knee. He has not had satisfactory improvement from nonsurgical treatment is ready proceed with total arthroplasty on right. Review of Systems Review of Systems: All systems reviewed & are unremarkable except as noted in HPI and below PMFSH Past Medical History Medical History GERD (gastroesophageal reflux disease) Sleep apnea Hyperlipidemia BPH (benign prostatic hyperplasia) Squamous cell carcinoma of scalp 2021, s/p MOHS Left knee DJD Right knee DJD Overweight (BMI 25.0-29.9) Degenerative joint disease of knee Bilateral knee pain Actinic keratosis Surgical History Surgical History History of left knee replacement History of Mohs micrographic surgery for squamous cell carcinoma in situ (SCCIS) of skin History of cataract extraction History of transurethral resection of prostate (2022) Family History Family History Grandparent Carcinoma of colon Mother Family history of diabetes mellitus in first degree relative Father No problems noted. Other Diabetes mellitus Family history of cardiovascular disease Family history of heart disease in male family member before age 55 Heart disease Social History Social History Smoking status: Never smoker Second hand tobacco smoke exposure: No Additional smoking assessment comments: DENIES ANY FORM OF TOBACCO USE Alcohol intake: never Substance use: never Substance use type: does not use Do You Feel Safe in your Home?: Yes Lack of Transportation: No Lack of Food: Never True Current Housing: I Have Housing Concerned About Future Housing: No Difficulty Paying Gas/Electric Bills: No Difficulty Paying for Meds: No Currently Unemployed: No Education: Bachelor's Degree Difficulty w/ Childcare or Family Care: No Living arrangements: with family Additional living arrangements comments: Occupation/Education: retired 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 [employer] Gender identity (if verbalized by the patient): Male Spiritual care concerns: No Meds Home Medications and Allergies Home Medications ?Medication ?Instructions ?Recorded ?Confirmed ?Type rosuvastatin 10 mg tablet (Crestor) 20 mg PO DAILY 10/29/19 08/30/24 History cholecalciferol (vitamin D3) 50 50 mcg PO DAILY 01/28/20 08/30/24 History mcg (2,000 unit) capsule omeprazole 20 mg capsule,delayed 20 mg PO PRN PRN Heartburn 02/05/24 08/30/24 History release celecoxib 200 mg capsule (Celebrex) 200 mg PO DAILY #10 caps 04/03/24 08/30/24 Rx acetaminophen 500 mg tablet 1,000 mg PO Q6H PRN pain 08/30/24 08/30/24 History (Tylenol Extra Strength) glucosamine-chondroitin 250 mg-200 2 tablet PO ONCE 08/30/24 08/30/24 History mg tablet (Osteo Bi-Flex) glgiudpg-vyvqpuug-fxfym acid 400 1 tablet PO DAILY 08/30/24 08/30/24 History mcg-vit K 20 mcg-lycop 300 mcg tablet (One-A-Day Men's Multivitamin) mupirocin 2 % topical ointment 1 applic topical BID #22 grams 09/03/24 Rx Allergies Allergy/AdvReac Type Severity Reaction Status Date / Time No Known Allergies Allergy Verified 08/30/24 07:57 Exam Narrative: 73-year-old male alert pleasant. BMI is 32.3. His right knee range of motion is from 15-125 degrees. He has moderate effusion. Mild medial pseudolaxity. Mild varus alignment. Mild tenderness over the medial joint line to palpation. Hip range of motion is full without discomfort, negative Stinchfield maneuver. Normal quad strength. He has trace pitting edema over the distal 3rd pretibial area no pedal edema. He has normal sensation light touch. 2+ dorsalis pedis pulse. Resp: Auscultation: clear to auscultation bilaterally Cardio: Rate: regular rate Rhythm: regular rhythm Assessment and Plan Assessment and plan (1) Right knee DJD: Qualifiers: Osteoarthritis type: primary Qualified Code(s): M17.11 - Unilateral primary osteoarthritis, right knee Code(s): M17.11 - Unilateral primary osteoarthritis, right knee Status: Acute Plan 73-year-old male who has severe medial compartment osteoarthritis the right knee. He feels this point is ready proceed with total knee arthroplasty. Surgical procedures well as the risks and complications were reviewed and all questions were answered and we will proceed. Patient's hemoglobin is 12.6 and platelets 168. Creatinine is 1.00 rest of his Chem panel was within normal limits. Nasal swab did grow oxacillin sensitive Staph aureus and has been to colonizing.
--- NOTE | 2024-09-18 14:27 | P.PNAN_ITS ---
Anes - Initial Pre Proc Eval Procedure: Operation Date: 09/19/24 07:30 Proposed Procedures p Right Total Knee Arthroplasty - Steve Dickey MD Date/Time: 09/18/24 14:27 Surgeon: Steve Dickey MD Pre Op Diagnosis: O A Rt Knee Patient Data Age: 73 Gender: M Height: 1.8 m Weight: 97.8 kg Last Vital Signs Temp 98.0 F 08/30/24 08:05 Pulse 69 08/30/24 08:05 Resp 16 08/30/24 08:05 BP 122/76 08/30/24 08:05 Pulse Ox 97 08/30/24 08:05 O2 Del Method Room Air 08/30/24 08:05 Allergies Allergy/AdvReac Type Severity Reaction Status Date / Time No Known Allergies Allergy Verified 09/19/24 06:17 Home Medications ?Medication ?Instructions ?Recorded ?Confirmed ?Type rosuvastatin 10 mg tablet (Crestor) 20 mg PO DAILY 10/29/19 09/19/24 History cholecalciferol (vitamin D3) 50 50 mcg PO DAILY 01/28/20 09/19/24 History mcg (2,000 unit) capsule omeprazole 20 mg capsule,delayed 20 mg PO PRN PRN Heartburn 02/05/24 09/19/24 History release celecoxib 200 mg capsule (Celebrex) 200 mg PO DAILY #10 caps 04/03/24 09/19/24 Rx acetaminophen 500 mg tablet 1,000 mg PO Q6H PRN pain 08/30/24 09/19/24 History (Tylenol Extra Strength) glucosamine-chondroitin 250 mg-200 2 tablet PO ONCE 08/30/24 09/19/24 History mg tablet (Osteo Bi-Flex) fngzwcgu-yzaaewvh-pusdt acid 400 1 tablet PO DAILY 08/30/24 09/19/24 History mcg-vit K 20 mcg-lycop 300 mcg tablet (One-A-Day Men's Multivitamin) mupirocin 2 % topical ointment 1 applic topical BID #22 grams 09/03/24 09/19/24 Rx Patient hx anesthesia problems: none Family hx anesthesia problems: none Results Review: All pre-operative results and documents have been reviewed as part of the pre- operative evaluation. [facility] Past Medical History Medical History GERD (gastroesophageal reflux disease) Sleep apnea Hyperlipidemia BPH (benign prostatic hyperplasia) Squamous cell carcinoma of scalp 2021, s/p MOHS Left knee DJD Right knee DJD Overweight (BMI 25.0-29.9) Degenerative joint disease of knee Bilateral knee pain Actinic keratosis Surgical History Surgical History History of left knee replacement History of Mohs micrographic surgery for squamous cell carcinoma in situ (SCCIS) of skin History of cataract extraction History of transurethral resection of prostate (2022) Family History Family History Grandparent Carcinoma of colon Mother Family history of diabetes mellitus in first degree relative Father No problems noted. Other Diabetes mellitus Family history of cardiovascular disease Family history of heart disease in male family member before age 55 Heart disease Social History Social History Smoking status: Never smoker Second hand tobacco smoke exposure: No Additional smoking assessment comments: DENIES ANY FORM OF TOBACCO USE Alcohol intake: never Substance use: never Substance use type: does not use Do You Feel Safe in your Home?: Yes Lack of Transportation: No Lack of Food: Never True Current Housing: I Have Housing Concerned About Future Housing: No Difficulty Paying Gas/Electric Bills: No Difficulty Paying for Meds: No Currently Unemployed: No Education: Bachelor's Degree Difficulty w/ Childcare or Family Care: No Living arrangements: with family Additional living arrangements comments: Occupation/Education: retired Additional occupation/education comments: [email or web address] Gender identity (if verbalized by the patient): Male Spiritual care concerns: No Anes - Eval Final PreProcedure Day of Procedure 09/18/24 14:27 Patient weight: normal Heart: regular rate and rhythm Lungs: clear to auscultation Airway: Mallampati scale class II Neurological: alert and oriented Last oral intake: >/= 8 hours ASA classification: III Emergent: no Anesthetic plan: proceed Anesthesia type and monitoring: general ETT and standard monitoring Results Review: All pre-operative results and documents have been reviewed as part of the pre- operative evaluation. Informed Consent: The patient's anesthetic plan and its attendant risks and benefits were discussed with the patient/family/POA. Questions were solicited and answers provided to the satisfaction of the patient/family/POA.
[2024-09-19] VITALS (13 sets, daily range): BP systolic 101–140; BP diastolic 60–83; PULSE 62–80; RESP 12–20; TEMP 35.9–36.7; O2SAT 94–99
--- NOTE | ~2024-09-19 | XR_ITS ---
EXAMINATION: [id number] DATE: 09/19/2024 10:59 INDICATION: Postoperative evaluation following right total knee arthroplasty. TECHNIQUE: Anteroposterior and lateral views of the right knee were obtained. COMPARISON: None. FINDINGS: Right total knee arthroplasty without patellar resurfacing appears well seated and in near anatomic a lignment. No fractures identified. Expected postoperative subcutaneous and intra-articular gas. Oste ochondral body posterior to the knee likely within a Malone's cyst. IMPRESSION: 1. Right total knee arthroplasty, negative for postoperative purposes. Reviewed, dictated and finalized at location A. GHTS MANAGER
[2024-09-19] MEDS: ACETAMINOPHEN 325 MG TABLET 650 MG PO ×4 (00:55→20:09)
[2024-09-19] MEDS: ACETAMINOPHEN 500 MG TABLET 1000 MG PO (06:28)
[2024-09-19] MEDS: LACTATED RINGERS 1,000 ML 30 ML IV CONT (06:30)
[2024-09-19] MEDS: VANCOMYCIN 1,500 MG/NS 500 ML 1,500 MG/500 ML BAG 250 MG IVPB (06:35)
[2024-09-19] MEDS: TRANEXAMIC ACID 1,000MG/ISO100 1,000 MG/100 ML BAG 200 MG IVPB (06:56)
--- NOTE | 2024-09-19 07:14 | SUR.PREOP ---
0645- pinpoint scab noted on right kaur area. 0715-Dr. Dickey aware of scab area, examined and will proceed.
--- NOTE | 2024-09-19 07:18 | WPDHPUPDATE1 ---
History and Physical Update Update Date/Time: 09/19/24 07:18 History and Physical has been reviewed, including an updated exam of the patient. There are NO changes in the patient's condition. Risks, benefits, and alternatives have been discussed and questions answered. Patient agrees to proceed with procedure.
[2024-09-19] MEDS: ceFAZolin 2 GM/D5W 50 ML 2 GM/50 ML BAG IVPB ×3 (07:30→22:42)
[2024-09-19] MEDS: ceFAZolin SODIUM 1 GM VIAL 3 GM (08:09)
[2024-09-19] MEDS: SODIUM CHLORIDE 0.9% IV 37.7 ML, MORPHINE SULFATE INJ (*CRX) 2 MG, ROPivacaine HCL 1% 2... INFILTRATE (08:10)
[2024-09-19] MEDS: GENTAMICIN BONE CEMENT REFOBACIN 1 EACH TOPICAL (09:34)
[2024-09-19] MEDS: ceFAZolin SODIUM 1 GM VIAL 2 GM IV PUSH (10:29)
[2024-09-19] MEDS: TRANEXAMIC ACID 1,000 MG/10 ML AMPUL 1000 MG IV PUSH (10:30)
[2024-09-19] MEDS: KETOROLAC 15 MG/ML VIAL (*BKC) IV PUSH ×3 (10:35→22:42)
--- NOTE | 2024-09-19 10:48 | P.OP_ITS ---
Procedure Note - Detailed Date of Procedure 09/19/24 Pre-op Diagnosis O A Rt Knee Post-op Diagnosis Same Procedure Performed Right total knee arthroplasty Surgeon Steve Dickey MD [employer] Manager [place] Anesthesia General Findings The Description of Procedure Patient was brought to the operating room and general anesthesia was administered. The he received 2 g of Ancef weight based vancomycin 1 g of TXA preoperatively. Under anesthesia there remained a 10 degree flexion contracture in the right knee the. After prepped and draped in the usual fashion limb was exsanguinated tourniquet elevated to 275 mmHg. A a 7 in longitudinal midline incision was used and a standard parapatellar arthrotomy utilized. Partial excision of infrapatellar fat pad and says quadriceps synovectomy carried out. Suprapatellar fat pad was excised. Patella had medial osteophytes and wear but the contour was normal and it was felt to be appropriate for non resurfacing. A the lateral facetectomy was performed. A guide norman was inserted on femoral canal after aspiration of canal contents using the 5 degree valgus cutting bushing, 9 mm of bone removed the distal femur. Next the tibial plateau was cut. We made a skim cut off the low point of the medial tibial plateau attempted to cut the tibia in 1 degree of varus 1 degree of posterior slope. Osteophytes removed from the anteromedial tibial plateau. Flexion gap at 90? measured 8 mm medially and 11 mm laterally. Femoral sizing guide was applied the distal femur set at 4? of external rotation which matched Whitesides line. There was a fair amount of posterior wear of the medial femoral condyle noted. Posterior referencing pinholes were placed and femur was cut to a size 67.5 which fit line to line medial to lateral. The tibia was sized to a 71. I felt the 75 was going to overhang anteromedially or posterolaterally at proper rotation. We confirmed that the tibial plateau was perfectly flat. Tibia was punched. We trialed with the 10 insert. Stability at 90? appropriate with 1 mm medial opening 2 mm lateral opening. However we lacked about 6 or 7? of flexion. An additional mm of bone was removed from the distal femur and posterior femoral osteophytes were removed and a central posterior capsular release was performed. The knee was again trialed and at this point was only 1 or 2? short of full extension with a positive bounce. There was a mm of opening medially and laterally in this degree of extension. The therefore I elected to remove 1 more mm of bone from the distal femur. On read trialing the knee still had a very slightly positive bounce but open 2 mm each medially and laterally. We therefore revisited the posterior capsule release extending this from the origin of the lateral head of the gastrocnemius to the medial head of gastrocnemius and with this the knee came out to full extension on trialing with negative bounce with 1-2 mm of medial and lateral opening to valgus and varus stress. Appropriate stability in all positions. Central patellar tracking was noted. Lug holes were drilled in the femoral component trial. We had put the tourniquet down at 90 minutes and tourniquet was we elevated after exsanguination of the limb. Bony surfaces were prepared with the step drill for cement interdigitation. Bone quality was excellent throughout. Bony surfaces were thoroughly irrigated dried. Using 2 batches of methylmethacrylate 1 with gentamicin powder the cement was immediately applied the 71 tibial component and the 67.5 CR right femoral component cement applied the tibial plateau and pressurized tibial component fully seated cement was applied the femur the femoral component fully see the knee brought into extension with a 11 mm 5 1 insert for pressurization. Tourniquet released at 6 minutes total tourniquet time EBL 150 cc. After cement hardening excess cement was sought for removed and hemostasis was achieved we trialed the 10 insert and this was chosen placed without difficulty and locked with a locking pin. Range of motion stability and patellar tracking were confirmed. Local anesthetic cocktail was injected into the periarticular soft tissues and the arthrotomy closed 2 Vicryl is a 1. Unidirectional barbed Stratafix suture running her skin closed with 2 subcutaneous Vicryl 3-0 subcuticular Monocryl and glue. He was transferred to postop recovery room stable condition. [facility] Billing Surgery - Charge Forward: Surgery Billing (Right total knee arthroplasty)
--- NOTE | 2024-09-19 11:09 | PM.OP ---
Procedure Note - Brief Procedure Note - Brief Date of procedure: 09/19/24 O A Rt Knee Procedure performed: Right total knee arthroplasty Surgeon: SARAH Curry Findings: 73-year-old male who underwent right total knee arthroplasty on 09/19. I was involved in the procedure including positioning the patient on the or table in 1st assisting through the time surgery. Total time spent was 3 1/2 hours
[2024-09-19] MEDS: fentaNYL CITRATE INJ (*CRX) 100 MCG/2 ML VIAL 25 MCG IV PUSH ×5 (11:20→11:34)
[2024-09-19] MEDS: oxyCODONE HCL (*CRX) 5 MG TAB IR PO ×3 (13:24→20:09)
[2024-09-19] MEDS: SODIUM CHLORIDE 0.9% IV 1,000 ML 125 ML IV CONT (13:24)
[2024-09-19] MEDS: SENNA/DOCUSATE SODIUM TABLET 2 TAB PO (18:34)
[2024-09-19] MEDS: VANCOMYCIN 1,000 MG/NS 250 ML 1,000 MG/250 ML BAG 250 MG IVPB (18:34)
[2024-09-19] MEDS: FAMOTIDINE 20 MG TABLET PO (20:09)
[2024-09-20 00:30] VITALS: BP 115/61; PULSE 58; RESP 16; TEMP 36.4; O2SAT 94
[2024-09-20] MEDS: oxyCODONE HCL (*CRX) 5 MG TAB IR PO ×4 (00:55→12:34)
[2024-09-20] MEDS: ACETAMINOPHEN 325 MG TABLET 650 MG PO ×3 (05:06→12:33)
[2024-09-20] MEDS: VANCOMYCIN 1,000 MG/NS 250 ML 1,000 MG/250 ML BAG 250 MG IVPB (05:06)
[2024-09-20 06:20] LABS: Basophils Percent Auto 0.2 % (0.2-1.2); Eosinophils Percent Auto 0.1 % (0-4.4); Hematocrit 40.9 % (42.0-52.0); Hemoglobin 13.3 g/dL (14.0-18.0); Immature Granulocyte Absolute 0.06 K/mm3 (0.00-0.031); Immature Granulocyte Percent A 0.5 % (0-0.5); Lymphocytes Absolute Auto 1.79 K/mm3 (0.9-3.2); Lymphocytes Percent Auto 13.7 % (18.3-44.2); Mean Corpuscular HGB Conc 32.5 g/dl (32-36); Mean Corpuscular Volume 89.3 fl (80-100); Mean Platelet Volume 10.7 fl (7.4-10.4); Neutrophils Absolute Auto 10.1 K/mm3 (1.3-6.7); Neutrophils Percent Auto 77.5 % (45.5-73.1); Platelet Count Result 146 k/mm3 (150-375); Red Blood Count 4.58 M/mm3 (4.6-6.20); Red Cell Distribution Width 14.8 % (11.5-14.5); White Blood Count 13.1 K/mm3 (4.5-10.0)
[2024-09-20 06:28] LABS: Anion Gap 9 mmol/L (4-12); Blood Urea Nitrogen 22 mg/dL (9-20); Carbon Dioxide 23 mmol/L (22-30); Chloride 105 mmol/L (98-107); Estimated CRCL calculation 66 ml/min; Estimated Glomerular Filt Rate > 60; Glucose 132 mg/dL (65-110); Potassium 4.6 mmol/L (3.4-5.0); Sodium 137 mmol/L (137-145)
[2024-09-20] MEDS: ceFAZolin 2 GM/D5W 50 ML 2 GM/50 ML BAG IVPB (06:30)
[2024-09-20 06:48] VITALS: BP 112/78; PULSE 59; RESP 16; TEMP 36.5; O2SAT 98
--- NOTE | 2024-09-20 08:01 | P.PNOP_ITS ---
Subjective Subjective Date/Time Seen: 09/20/24 08:01 Interval history: Postop day 1 patient is alert. He is afebrile vital signs are stable. Morning labs are noted. Dressing is dry and intact. Neurovascularly he is intact. He was up yesterday walking with physical therapy in the halls and was very comfortable. His pain remains very tolerable at this point on oral narcotics. Eliquis will be started this morning. Plan will be to have the patient work w ith therapy today and discharge to home either late this morning or early this afternoon. Overall patient is doing very well. He had his left knee replaced recently and is very well aware of the recovery. Objective Data Vital Signs Vital Signs: Vital Signs - 24 hr 09/19/24 11:03 09/19/24 11:15 09/19/24 11:30 Temperature 98.1 F Pulse Rate 80 62 65 Respiratory Rate 14 12 14 Blood Pressure 101/70 117/74 122/74 Pulse Oximetry 97 94 94 Oxygen Delivery Simple Face Mask Simple Face Mask Nasal Cannula Oxygen Flow Rate 10 10 2 09/19/24 11:45 09/19/24 12:00 09/19/24 12:15 Temperature Pulse Rate 67 67 63 Respiratory Rate 14 14 14 Blood Pressure 124/78 123/83 125/70 Pulse Oximetry 95 96 98 Oxygen Delivery Nasal Cannula Nasal Cannula Nasal Cannula Oxygen Flow Rate 2 2 2 09/19/24 12:50 09/19/24 13:14 09/19/24 13:35 Temperature 96.7 F L 96.8 F L 96.7 F L Pulse Rate 64 65 67 Respiratory Rate 18 18 18 Blood Pressure 140/61 134/68 124/80 Pulse Oximetry 99 95 95 Oxygen Delivery Oxygen Flow Rate 09/19/24 14:00 09/19/24 14:35 09/19/24 18:15 Temperature 97.2 F L 97.2 F L Pulse Rate 66 72 Respiratory Rate 18 16 Blood Pressure 122/77 110/60 Pulse Oximetry 95 98 Oxygen Delivery Room Air Oxygen Flow Rate 09/19/24 20:00 09/19/24 21:45 09/20/24 00:30 Temperature 97.9 F 97.6 F Pulse Rate 65 58 L Respiratory Rate 16 16 Blood Pressure 107/68 115/61 Pulse Oximetry 97 94 Oxygen Delivery Room Air Oxygen Flow Rate 09/20/24 06:48 Temperature 97.7 F Pulse Rate 59 L Respiratory Rate 16 Blood Pressure 112/78 Pulse Oximetry 98 Oxygen Delivery Oxygen Flow Rate Intake/Output Intake/Output: Intake & Output 09/17/24 09/18/24 09/19/24 09/20/24 23:59 23:59 23:59 23:59 Intake Total 1000 250 Output Total 500 Balance 1000 -250 Meds/Results Medications: Active Medications Generic Name Dose Route Start Last Admin Trade Name Freq PRN Reason Stop Dose Admin Acetaminophen 650 mg 09/19/24 13:00 09/20/24 05:06 Acetaminophen 325 Mg Tablet PO 650 mg Q4H RAQUEL Administration Apixaban 2.5 mg 09/20/24 09:00 Apixaban 2.5 Mg Tablet PO 10/01/24 21:01 Q12HR [facility] Celecoxib 200 mg 09/20/24 08:00 Celecoxib 200 Mg Capsule PO DAILY@0800 [facility] Cephalexin HCl 500 mg 09/20/24 12:00 Cephalexin 500 Mg Capsule PO Q6HR [facility] Diphenhydramine HCl 25 mg 09/19/24 12:30 Diphenhydramine Hcl Inj 50 Mg/Ml Vial IV PUSH Q6H PRN Itching Famotidine 20 mg 09/19/24 21:00 09/19/24 20:09 Famotidine 20 Mg Tablet PO 20 mg Q12HR [facility] Administration Morphine Sulfate 2 mg 09/19/24 12:30 Morphine Sulfate (*Crx) 2 Mg/Ml Inj IV PUSH Q2H PRN Breakthrough Pain Rated 4-6 or NPO Naloxone HCl 0.1 mg 09/19/24 12:30 Naloxone Hcl 0.4 Mg/Ml Vial IV PUSH Q2M PRN Opiate Reversal Ondansetron HCl 4 mg 09/19/24 12:30 Ondansetron Inj 4 Mg/2 Ml Vial IV PUSH Q4H PRN Nausea And Vomiting Oxycodone HCl 5 mg 09/19/24 13:00 09/20/24 05:06 Oxycodone Hcl (*Crx) 5 Mg Tab Ir PO 5 mg Q4H RAQUEL Administration Oxycodone HCl 5 mg 09/19/24 12:30 Oxycodone Hcl (*Crx) 5 Mg Tab Ir PO Q4H PRN Pain Rated 7-10 Polyethylene Glycol 17 gm 09/20/24 09:00 Polyethylene Glycol 3350 17 Gm Powd.Pack PO QAM [facility] Rosuvastatin Calcium 20 mg 09/20/24 09:00 Rosuvastatin 10 Mg Tablet PO DAILY [facility] Senna/Docusate Sodium 2 tab 09/19/24 17:00 09/19/24 18:34 Senna/Docusate Sodium Tablet PO 2 tab BID [facility] Administration Vitamin D 2,000 units 09/20/24 09:00 Cholecalciferol 1,000 Units Tablet PO DAILY [facility] Radiology Results: ITS Impressions Knee X-Ray 09/19/24 11:04 IMPRESSION: 1. Right total knee arthroplasty, negative for postoperative purposes. Labs Labs: Laboratory Results - last 24 hr 09/20/24 05:56 WBC 13.1 H RBC 4.58 L Hgb 13.3 L Hct 40.9 L MCV 89.3 MCH 29.0 MCHC 32.5 RDW 14.8 H Plt Count 146 L MPV 10.7 H Immature Gran % (Auto) 0.5 Neut % (Auto) 77.5 H Lymph % (Auto) 13.7 L [place] % (Auto) 8.0 Eos % (Auto) 0.1 Baso % (Auto) 0.2 Lymph # (Auto) 1.79 [place] # (Auto) 1.0 H Eos # (Auto) 0.0 Baso # (Auto) 0.0 Abs Immat Gran (auto) 0.06 H Absolute Neuts (auto) 10.1 H Absolute Nucleated RBC 0.000 Nucleated RBC % 0.0 Sodium 137 Potassium 4.6 Chloride 105 Carbon Dioxide 23 Anion Gap 9 BUN 22 H Creatinine 0.90 Estim Creat Clear Calc 66 Estimated GFR > 60 Glucose 132 H Calcium 9.0
--- NOTE | 2024-09-20 08:25 | P.DS_ITS ---
DS: Admitting Diagnosis Discharge Date 09/20 Admitting Diagnosis Right knee DJD DS: Discharge Diagnosis Discharge Diagnosis (1) Right knee DJD: Qualifiers: Osteoarthritis type: primary Qualified Code(s): M17.11 - Unilateral primary osteoarthritis, right knee Code(s): M17.11 - Unilateral primary osteoarthritis, right knee Status: Acute DS: Summary Hospital Course Hospital Course: 73-year-old male who underwent right total knee arthroplasty on 09/19. He underwent the procedure without complications. Postoperatively he has been afebrile and vital signs been stable. Patient was up walking with physical therapy the day of surgery in the [place]. His pain overall is very well tolerated. He is on oxycodone 5 mg as well as Tylenol every 4 hours for pain control. He is on Celebrex 200 mg daily. He is on Eliquis for DVT prophylaxis. He is weight-bearing as tolerated. Morning of postop day 1 patient was very alert and comfortable. Morning labs were all stable. Dressing is dry and intact. Patient was able do a straight leg raise in the bed the morning of postop day 1. Patient will be discharged home on 09/20. He is very stable. He was advised to keep leg elevated home prevent swelling but do his exercises hourly basis. He recently underwent left total knee arthroplasty and he is well aware the recovery. He will go home with a 10 day course of Keflex due to his nasal swab growing oxacillin sensitive Staph aureus. He will also go home on Senokot and MiraLax for constipation. He has outpatient therapy starting next Monday. Patient was advised any questions or concerns he is to call the office Time Spent with Patient Time attestation: Total time spent providing and/or coordinating discharge services: DS: Data Data Completed and Pending Labs on day of discharge: Labs from last 24 hours 09/20/24 05:56 WBC 13.1 H RBC 4.58 L Hgb 13.3 L Hct 40.9 L MCV 89.3 MCH 29.0 MCHC 32.5 RDW 14.8 H Plt Count 146 L MPV 10.7 H Immature Gran % (Auto) 0.5 Neut % (Auto) 77.5 H Lymph % (Auto) 13.7 L [place] % (Auto) 8.0 Eos % (Auto) 0.1 Baso % (Auto) 0.2 Lymph # (Auto) 1.79 [place] # (Auto) 1.0 H Eos # (Auto) 0.0 Baso # (Auto) 0.0 Abs Immat Gran (auto) 0.06 H Absolute Neuts (auto) 10.1 H Absolute Nucleated RBC 0.000 Nucleated RBC % 0.0 Sodium 137 Potassium 4.6 Chloride 105 Carbon Dioxide 23 Anion Gap 9 BUN 22 H Creatinine 0.90 Estim Creat Clear Calc 66 Estimated GFR > 60 Glucose 132 H Calcium 9.0 Discharge Plan Discharge Patient Disposition: Home, Self-Care Discharge Instructions: STEVE DICKEY M.D [facility] [address] [address] [address] [place] [address] POST-OPERATIVE DISCHARGE INSTRUCTIONS TOTAL KNEE ARTHROPLASTY 1. When resting, do not rest in the chair.When resting, lie on your back, with back flat on the couch or bed, with leg elevated above heart to minimize swelling. You may put a pillow under your head. . Significant swelling could indicate a blood clot and if this occurs call the office (or go to the ER) to have a venous ultrasound. Therefore, do not rest in a chair. 2. At least five times a day spend several minutes stretching your knee into flexion while sitting in the chair and also stretching your knee out straight The abilities to bend your knee fully and straighten your knee fully are two most important knee functions to focus on during your recovery. 3. It is ok to sit in chair to eat, use the toilet and receive a guest and to do your stretching exercises, but, sitting in a chair will cause your leg to swell. Therefore, avoid additional time sitting in the chair. and don't rest in the chair. 4. Wound Care: Nursing will give you an additional Mepilex/Aquacell dressing at the time of discharge. Patient to remove the dressing and apply a new Mepilex/Aquacell dressing at home 7 days after surgery and leave the dressing on until seen in office. It is normal to see a small amount of blood on the silver pad of the Mepilex/Aquacell dressing. Its designed to hold small spots of blood. However, if the blood reaches the edge of the pad up to the boarder of the clear membrane that surrounds the pad, the pad is saturated and the Mepilex/Aqucell dressing should be removed and a new Mepilex/Aquacell dressing should be applied. 5. May shower with a Mepilex/Aquacell dressing in place.The water will run off the dressing. 6. Unless you are told otherwise, you may put full weight on your operated leg. Use a walker for balance and practice walking as normally as you can, ideally for a few minutes every hour while you are awake. 7. I would advise against putting ice packs on your knee incision. Ice constricts blood flow which can impar healing of the knee incision. IMPORTANT: Remember not to sit in the chair for more than 30 minutes at a time. As a rule, during the first 14 days after surgery, only sit in the chair to work on the chair knee bending stretch exercise, for meals or for use of the restroom. Sitting in the chair promotes significant swelling in the knee and leg which will make your knee stiff and more painful and which simulates having a blood clot in the veins of the leg. If this type of significant diffuse swelling occurs, an ultrasound at the hospital will be necessary to rule out a blood clot. Be up walking around with the walker for a few minutes every hour while awake and then rest laying on your back on the couch or in bed with your leg elevated on cushions or pillows. Do not rest in the chair. Patient Instructions: Apixaban (By mouth) Patient Language: Croatian Follow-up/Referrals: Steve Dickey MD [Physician] - Keep Reg. Scheduled Appt. Discharge Medications: New celecoxib [Celebrex] 200 mg Capsule 200 mg PO DAILY@0800 Qty: 60 0RF acetaminophen 325 mg Tablet 650 mg PO Q4H Qty: 90 0RF polyethylene glycol 3350 [Miralax] 17 gram Powder In Packet 17 g PO QAM Qty: 30 0RF sennosides-docusate sodium [Senokot-S] 8.6-50 mg Tablet 2 tab PO BID Qty: 60 0RF cephalexin 500 mg Capsule 500 mg PO Q6HR Qty: 40 0RF oxycodone 5 mg Tablet 5 mg PO Q4H PRN (Reason: Pain ) Qty: 40 0RF Eliquis 2.5 mg Tablet 2.5 mg PO Q12HR Qty: 28 0RF Continued rosuvastatin [Crestor] 10 mg tablet 20 mg PO DAILY cholecalciferol (vitamin D3) 50 mcg (2,000 unit) capsule 50 mcg PO DAILY omeprazole 20 mg Capsule,Delayed Release(Dr/Ec) 20 mg PO PRN PRN (Reason: Heartburn) One-A-Day Men's Multivitamin 400-20-300 mcg tablet 1 tablet PO DAILY Discontinued celecoxib [Celebrex] 200 mg capsule 200 mg PO DAILY Qty: 10 1RF acetaminophen [Tylenol Extra Strength] 500 mg tablet 1,000 mg PO Q6H PRN (Reason: pain) glucosamine-chondroitin [Osteo Bi-Flex] 250-200 mg tablet 2 tablet PO ONCE Rx Instructions: give after food/meal mupirocin 2 % ointment 1 applic topical BID Qty: 22 0RF
[2024-09-20] MEDS: CHOLECALCIFEROL 1,000 UNITS TABLET 2000 UNITS PO (09:25)
[2024-09-20] MEDS: APIXABAN 2.5 MG TABLET PO (09:25)
[2024-09-20] MEDS: CELECOXIB 200 MG CAPSULE PO (09:26)
[2024-09-20] MEDS: FAMOTIDINE 20 MG TABLET PO (09:26)
[2024-09-20] MEDS: ROSUVASTATIN 10 MG TABLET 20 MG PO (09:26)
[2024-09-20] MEDS: SENNA/DOCUSATE SODIUM TABLET 2 TAB PO (09:26)
[2024-09-20] MEDS: polyethylene glycoL 3350 17 GM POWD.PACK PO (09:26)
[2024-09-20 10:15] VITALS: BP 116/63; PULSE 65; RESP 18; TEMP 36.2; O2SAT 98
[2024-09-20] MEDS: CEPHALEXIN 500 MG CAPSULE PO (12:33)
== END 2024-09-20 14:19 | disposition home or self-care (01) ==
LOC: ANHSURGERY 06:07 → ANH2MED 12:37
PROVIDERS: Physician Assistant Surgical; PCP Internal Medicine; Visit Provider Orthopaedic Surgery
PROC: (CPT 27447; principal; 2024-09-19 07:30)
DX: M17.11 Unilateral primary osteoarthritis, right knee (principal); M25.761 Osteophyte, right knee; K21.9 Gastro-esophageal reflux disease without esophagitis; G47.30 Sleep apnea, unspecified; E78.5 Hyperlipidemia, unspecified; N40.0 Benign prostatic hyperplasia without lower urinary tract symptoms; L57.0 Actinic keratosis; Z79.1 Long term (current) use of non-steroidal anti-inflammatories (NSAID); Z98.890 Other specified postprocedural states; Z96.652 Presence of left artificial knee joint; Z85.828 Personal history of other malignant neoplasm of skin; Z80.0 Family history of malignant neoplasm of digestive organs; Z82.49 Family history of ischemic heart disease and other diseases of the circulatory system
CPT/HCPCS: 27447; 36415; 73560; 80048; 85025; 86850; 86900; 86901; 97110; 97116; 97161; 97165; 97530; 97535; A9270; C1713; C1776; J0171; J0690; J1100; J1885; J2003; J2270; J2371; J2405; J2704; J2795; J3010; J3370; J7030; J7120

== ENCOUNTER 2024-10-29 10:15 | Outpatient (RCR) | payer MEDICARE, SELFPAY ==
--- NOTE | 2024-09-23 13:27 | OPREHPOC ---
Outpatient Therapy Plan of Care This is a Multidisciplinary Plan of Care that may contain components documented by all disciplines (PT, OT, and ST.) PT Problem 1 PT Problem #1 Knowledge Deficit PT Goal 1 Goal / Goal Update 1. Pt to be IND with issued HEP Target Visit 10 PT Problem 2 PT Problem #2 Pain PT Goal 1 Goal / Goal Update 1. Pt to report pain no greater than 3/10 in the last week 2. Pt to report 75% improvement in overall symptoms. PT Problem 3 PT Problem #3 Impaired Range of Motion PT Goal 1 Goal / Goal Update 1. Pt to demonstrate passive knee flexion to 110 deg 2. Pt to demonstrate passive knee extension no greater than 3 deg in order to normalize stride length. Target Visit 10 PT Problem 4 PT Problem #4 Impaired Functional Mobility PT Goal 1 Goal / Goal Update 1. Pt to demonstrate a functional lift and carry with 20lb from ground level 2. Pt to ambulate stairs with a reciprocal pattern Target Visit 10
--- NOTE | 2024-09-23 13:27 | PTOPEVAL1 ---
Assessment and note entered by Sharmin Gautam, PT, DPT Evaluation Information Assessment Status Evaluation Diagnosis R TKA ICD-10 Condition Codes (PT) Pain in right knee M25.561,Difficulty Walking R26. 2,Weakness R53.1,Aftercare following joint replacement surgery Z47.1 Onset 09/19/24 Subjective Information Pt had a R TKA on 09/19/24. He states he has had some swelling but its already starting to decrease . He states he has been really diligent with his exercises. He is ambulating with a walker. Reported Pain Level Pain Score 6: Self Report Assessment PT Clinical Summary Pt presents to therapy today for his initial evaluation following a R TKA on 09/20/24. Pt demonstrates decreased active and passive knee ROM , decreased functional strength, gait deviations, and decreased functional independence from his baseline. He currently is ambulating with a WW and at a speed that places him at an increased fall risk. Skilled therapy services are indicated to address the deficits noted above, to manage pain, and to return to PLOF. Plan of Care Interventions Electrical Stimulation,Gait Training,Hot Pack/Cold Pack,Intermittent Compression Pump,Manual Therapy ,Neuro Re-education,Patient/Caregiver Education, Therapeutic Activities,Therapeutic Exercise PT Services Indicated Yes Treatment Frequency and 2x/wk for 10 visits Duration These treatments will address the objective and functional deficits as defined above. The patient will be advanced safely and appropriately in order for the patient to progress towards his/her prior level of function. Additional exercises will be introduced and as well as a comprehensive home exercise program upon discharge, if needed, ?to ensure carryover of functional gains achieved in the clinic. This treatment plan has been reviewed and agreement upon by the patient.
--- NOTE | 2024-10-24 12:01 | OPREHPOC ---
Outpatient Therapy Plan of Care This is a Multidisciplinary Plan of Care that may contain components documented by all disciplines (PT, OT, and ST.) PT Problem 1 PT Problem #1 Knowledge Deficit PT Goal 1 Goal / Goal Update 1. Pt to be IND with issued HEP 10/24/24: 1. met Target Visit 10 Progress Met PT Problem 2 PT Problem #2 Pain PT Goal 1 Goal / Goal Update 1. Pt to report pain no greater than 3/10 in the last week 2. Pt to report 75% improvement in overall symptoms. 10/24/24: 1. progressing 2. progressing, 50% improvement Progress Partially Met PT Problem 3 PT Problem #3 Impaired Range of Motion PT Goal 1 Goal / Goal Update 1. Pt to demonstrate passive knee flexion to 110 deg 2. Pt to demonstrate passive knee extension no greater than 3 deg in order to normalize stride length. 10/24/24: 1. met, 125 2. Progressing, 5 deg Target Visit 10 PT Problem 4 PT Problem #4 Impaired Functional Mobility PT Goal 1 Goal / Goal Update 1. Pt to demonstrate a functional lift and carry with 20lb from ground level 2. Pt to ambulate stairs with a reciprocal pattern 10/24/24: 1. progressing 2. progressing, can ascend but not descend Target Visit 10
--- NOTE | 2024-10-24 12:01 | PTOPPROG ---
Assessment and note entered by Sharmin Gautam, PT, DPT Evaluation Information Assessment Status Progress Diagnosis R TKA ICD-10 Condition Codes (PT) Pain in right knee M25.561,Difficulty Walking R26. 2,Weakness R53.1,Aftercare following joint replacement surgery Z47.1 Onset 09/19/24 Subjective Information Pt reports improved mobility and improved activity level from day to day. States last night his knee was aching and a bit swollen compared to normal. States he is able to walk further and longer, stand longer, and exercise more than when he started therapy. Assessment PT Clinical Summary Pt presents to therapy today for his progress report following 9 visits of skilled therapy following a R TKA on 09/20/24. Today pt demonstrates significant improvement in his flexion and extension ROM. He continues to lack end range extension, has decreaed eccentric quad strength, and gait deviations on stairs. His gait pattern and speed has improved significantly. Continuation of skilled therapy services are indicated to continue progressing towards therapy goals, to manage pain, and to return to PLOF. Plan of Care Interventions Electrical Stimulation,Gait Training,Hot Pack/Cold Pack,Intermittent Compression Pump,Manual Therapy ,Neuro Re-education,Patient/Caregiver Education, Therapeutic Activities,Therapeutic Exercise PT Services Indicated Yes Treatment Frequency and 2x/wk for 10 visits Duration These treatments will address the objective and functional deficits as defined above. The patient will be advanced safely and appropriately in order for the patient to progress towards his/her prior level of function. Additional exercises will be introduced and as well as a comprehensive home exercise program upon discharge, if needed, ?to ensure carryover of functional gains achieved in the clinic. This treatment plan has been reviewed and agreement upon by the patient.
--- NOTE | 2024-11-05 10:01 | PCPTNOTE ---
Pt called and cancelled all of his remaining appointments for the month. Per his provider, he needs to take a break from therapy at this time. He has a re-evaluation scheduled for the end of his POC.
--- NOTE | 2024-11-25 08:22 | PTOPDC ---
Assessment and note entered by Sharmin Gautam, PT, DPT Evaluation Information Assessment Status Discharge - Pt Not Present Diagnosis R TKA ICD-10 Condition Codes (PT) Pain in right knee M25.561,Difficulty Walking R26. 2,Weakness R53.1,Aftercare following joint replacement surgery Z47.1 Onset 09/19/24 Subjective Information Pt forgot about his scheduled re-evaluation today. Called and spoke with pt. States he is doing well and does not need any additional therapy. Assessment PT Clinical Summary Pt completed 10 visits of skilled therapy. Will be discharged at this time.
== END 2024-12-10 12:54 | disposition home or self-care (01) ==
LOC: ANHGOSHPT 10:15
PROVIDERS: PCP Internal Medicine; Visit Provider Orthopaedic Surgery
DX: Z47.1 Aftercare following joint replacement surgery (principal); M25.561 Pain in right knee; R26.2 Difficulty in walking, not elsewhere classified; R53.1 Weakness; Z96.651 Presence of right artificial knee joint
CPT/HCPCS: 97110; 97140; 97161; 97530